=== PATIENT | male | born 1960 | race Hispanic/Latino ===

== ENCOUNTER 2016-09-10 11:46 | Emergency (ER) | payer OTHER ==
[2016-09-10 12:01] VITALS: O2SAT 91
[2016-09-10] MEDS ORDERED: Oxycodone/Acetaminophen 5/325 mg Tab PO STA ×2 (12:10→15:18)
[2016-09-10] MEDS ORDERED: Oxycodone/Acetaminophen 5/325 mg Tab ONE ×2 (12:25→15:12)
[2016-09-10 12:36] LABS: SQUAMOUS EPITHIAL < 1 /hpf (0-5); URINE BILIRUBIN NEGATIVE (NEGATIVE); URINE BLOOD 2+ (NEGATIVE); URINE CLARITY Hazy (Clear); URINE COLOR Amber (YELLOW); URINE GLUCOSE (UA) NORMAL (Normal); URINE LEUKOCYTE ESTERASE NEG Leu/uL (Negative); URINE NITRATE NEGATIVE (NEGATIVE); URINE PROTEIN 1+ mg/dL (NEGATIVE)
--- NOTE | 2016-09-10 12:42 | RAD ---
PROCEDURE: Radiographs of the Lumbar Spine. HISTORY: sciatica COMPARISON: None available. FINDINGS: BONES: Alignment appears satisfactory. No listhesis. No acute displaced fracture identified. Prominent anterior osteophyte formation. DISC SPACES: Intervertebral disc space narrowing and evidence of vacuum disc phenomenon at L5-S1. OTHER FINDINGS: Dense atherosclerotic calcifications of the aorta. Evidence of mesh involving the lower left pelvic wall. IMPRESSION: Degenerative changes as above. No acute displaced fracture or subluxation identified.
--- NOTE | 2016-09-10 13:39 | C.PDOC ---
History Of Present Illness 56 y/o male c/o lower back pain radiating to the right groin area since yesterday. Pt states pain may be due to lifting something heavy at his job yesterday. Pt notes he took 3 aspirin this morning w/o relief. Otherwise, denies trauma, fever, chills, abdominal pain, nausea, vomiting, new weakness or numbness, dysuria, urinary/bowel incontinence, or other associated symptoms. Time Seen by Provider: 09/10/16 12:01 Chief Complaint (Nursing): Back Pain History Per: Patient History/Exam Limitations: no limitations Onset/Duration Of Symptoms: Days Current Symptoms Are (Timing): Still Present Quality Of Discomfort: "Pain" Previous Symptoms: None Associated Symptoms: denies: New Weakness, New Numbness Recent travel outside of the [place]: No Past Medical History Reviewed: Historical Data, Nursing Documentation, Vital Signs Vital Signs: Last Vital Signs Temp 98.7 F 09/10/16 13:47 Pulse 57 L 09/10/16 13:47 Resp 18 09/10/16 13:47 BP 183/95 H 09/10/16 13:47 Pulse Ox 91 L 09/10/16 15:06 - Medical History PMH: HTN Family History: States: Unknown Family Hx - Social History Hx Tobacco Use: No Hx Alcohol Use: No Hx Substance Use: Yes - Immunization History Hx Tetanus Toxoid Vaccination: No Hx Influenza Vaccination: No Hx Pneumococcal Vaccination: No Review Of Systems Except As Marked, All Systems Reviewed And Found Negative. Constitutional: Negative for: Fever, Chills Cardiovascular: Negative for: Chest Pain Respiratory: Negative for: Cough, Shortness of Breath, Wheezing Gastrointestinal: Negative for: Nausea, Vomiting, Abdominal Pain Genitourinary: Negative for: Dysuria, Frequency, Incontinence, Hematuria Musculoskeletal: Positive for: Back Pain. Negative for: Neck Pain Skin: Negative for: Rash Neurological: Negative for: Weakness, Numbness, Headache, Dizziness Physical Exam - Physical Exam Appears: Non-toxic, No Acute Distress Skin: Normal Color, Warm, Dry Head: Atraumatic, Normacephalic Oral Mucosa: Moist Neck: Normal ROM, No Midline Cervical Tenderness, No Paracervical Tenderness, Supple Chest: Symmetrical Cardiovascular: Rhythm Regular Respiratory: Normal Breath Sounds, No Rales, No Rhonchi, No Wheezing Gastrointestinal/Abdominal: Soft, No Tenderness, No Guarding, No Rebound Back: No Vertebral Tenderness, Paraspinal Tenderness (mild paralumbar tenderness ) Extremity: Normal ROM, Capillary Refill (< 2 sec.) Neurological/Psych: Oriented x3, Normal Speech, Normal Cognition, Normal Motor, Normal Sensation ED Course And Treatment O2 Sat by Pulse Oximetry: 91 - Other Rad LS SPINE XRAY X-Ray: Viewed By Me, Read By Radiologist Interpretation: Accession No. : [id number]. Patient Name / ID : NICOLE TORRES / [id number]. Exam Date : 09/10/2016 12:10:33 ( Approved ). Study Comment : Sex / Age : M / 56Y. Creator : Edyta Perez MD. Dictator : Basic Combatant Swimmer : Model And Pattern Supervisor : Edyta Perez MD. Approver2 : Report Date : 09/10/2016 12:41:15. My Comment : . PROCEDURE: Radiographs of the Lumbar Spine. HISTORY: sciatica. COMPARISON: None available. FINDINGS: BONES: Alignment appears satisfactory. No listhesis. No acute displaced fracture identified. Prominent anterior osteophyte formation. DISC SPACES: Intervertebral disc space narrowing and evidence of vacuum disc phenomenon at L5-S1. OTHER FINDINGS: Dense atherosclerotic calcifications of the aorta. Evidence of mesh involving the lower left pelvic wall. IMPRESSION: Degenerative changes as above. No acute displaced fracture or subluxation identified. - CT Scan/US CT ABDOMEN PELVIS Other Rad Studies (CT/US): Read By Radiologist, Radiology Report Reviewed CT/US Interpretation: Accession No. : [id number]. Patient Name / ID : NICOLE TORRES / [id number]. Exam Date : 09/10/2016 13:30:51 ( Approved ). Study Comment : Sex / Age : M / 56Y. Creator : ricky reno. Dictator : Basic Combatant Swimmer : Model [employer] Pattern Supervisor : Edyta Perez MD. Approver2 : Report Date : 09/10/2016 13:44:50. My Comment : . PROCEDURE: CT Abdomen and Pelvis without Oral or IV contrast. HISTORY: back pain, right groin pain, hematuria. COMPARISON: None available. TECHNIQUE: Contiguous axial images of the abdomen and pelvis. No oral or IV contrast administered. Coronal and Sagittal reformats generated and reviewed. Radiation dose: Total exam DLP = 642.72 MGy- cm. This CT exam was performed using one or more of the following dose reduction techniques: Automated exposure control, adjustment of the mA and/or kV according to patient size, and/or use of iterative reconstruction technique. FINDINGS: There is limited evaluation of the solid organs without the administration of IV contrast. LOWER THORAX: No visible consolidation, pleural effusion, or pneumothorax. Small hiatal hernia. LIVER: 5 mm right hepatic lobe hypodensity, too small to characterize. GALLBLADDER AND BILE DUCTS : Unremarkable unenhanced appearance. PANCREAS: Unremarkable unenhanced appearance. SPLEEN: 15 mm probable splenule. Splenomegaly. ADRENALS: Unremarkable. KIDNEYS AND URETERS: No hydronephrosis or obstructing renal calculus. BLADDER: The urinary bladder appears unremarkable. REPRODUCTIVE: The prostate gland measures approximately 3.5 x 4.1 cm. APPENDIX: Unremarkable. BOWEL: The stomach is nondistended. Lack of oral contrast limits evaluation for bowel pathology. The bowel loops appear within normal limits of caliber without evidence of intestinal obstruction. PERITONEUM: No significant free fluid. No definite free air. LYMPH NODES: No bulky lymphadenopathy identified. VASCULATURE: Atherosclerotic calcifications. No aortic aneurysm. BONES: Osseous demineralization. Degenerative changes. OTHER FINDINGS: Left anterior pelvic mesh. Small fat containing right inguinal hernia. IMPRESSION: Too small to characterize 5 mm right hepatic lobe hypodensity; statistically likely cyst or hemangioma. Splenomegaly. Small fat containing right inguinal hernia. Additional findings as above. Progress Note: Percocet, Toradol, Valium, CT abd/pelvis ordered, reviewed. On reassessment, patient is resting comfortably, and is in no acute distress. Patient reports improvement of pain and is ambulatory in ED. Patient instructed to follow up with clinic/PMD within 1-2 days. Disposition - Disposition Referrals: [facility] [Outside] [facility] [Outside] [facility] [Outside] Patricia Dunne MD [Staff Provider] - Disposition: HOME/ ROUTINE Disposition Time: 15:04 Condition: STABLE Additional Instructions: Follow up with PMD/ clinic/Urologist within 1-2 days. Return to Ed if feel worse. Prescriptions: Ibuprofen [Motrin Tab] 600 mg PO Q8 #30 tab oxyCODONE/Acetaminophen [Percocet 5/325 mg Tab] 1 tab PO QID PRN #20 tab PRN Reason: Pain diaZEpam [Valium] 2 mg PO TID #15 tab Instructions: Acute Low Back Pain (ED) Forms: [facility] (Indonesian), Work Excuse - Clinical Impression Clinical Impression: Low back strain - PA / STOCKBROKER / Resident Statement MD/DO has reviewed & agrees with the documentation as recorded. - Scribe Statement The provider has reviewed the documentation as recorded by the Scribe SGKanika All medical record entries made by the Scribe were at my direction and personally dictated by me. I have reviewed the chart and agree that the record accurately reflects my personal performance of the history, physical exam, medical decision making, and the department course for this patient. I have also personally directed, reviewed, and agree with the discharge instructions and disposition.
[2016-09-10 13:48] VITALS: BP 183/95; PULSE 57; RESP 18; TEMP 98.7
--- NOTE | 2016-09-10 14:30 | CT ---
PROCEDURE: CT Abdomen and Pelvis without Oral or IV contrast. HISTORY: back pain, right groin pain, hematuria COMPARISON: None available TECHNIQUE: Contiguous axial images of the abdomen and pelvis. No oral or IV contrast administered. Coronal and Sagittal reformats generated and reviewed. Radiation dose: Total exam DLP = 642.72 MGy-cm. This CT exam was performed using one or more of the following dose reduction techniques: Automated exposure control, adjustment of the mA and/or kV according to patient size, and/or use of iterative reconstruction technique. FINDINGS: There is limited evaluation of the solid organs without the administration of IV contrast. LOWER THORAX: No visible consolidation, pleural effusion, or pneumothorax. Small hiatal hernia. LIVER: 5 mm right hepatic lobe hypodensity, too small to characterize. GALLBLADDER AND BILE DUCTS: Unremarkable unenhanced appearance. PANCREAS: Unremarkable unenhanced appearance. SPLEEN: 15 mm probable splenule. Splenomegaly. ADRENALS: Unremarkable. KIDNEYS AND URETERS: No hydronephrosis or obstructing renal calculus. BLADDER: The urinary bladder appears unremarkable. REPRODUCTIVE: The prostate gland measures approximately 3.5 x 4.1 cm. APPENDIX: Unremarkable. BOWEL: The stomach is nondistended. Lack of oral contrast limits evaluation for bowel pathology. The bowel loops appear within normal limits of caliber without evidence of intestinal obstruction. PERITONEUM: No significant free fluid. No definite free air. LYMPH NODES: No bulky lymphadenopathy identified. VASCULATURE: Atherosclerotic calcifications. No aortic aneurysm. BONES: Osseous demineralization. Degenerative changes. OTHER FINDINGS: Left anterior pelvic mesh. Small fat containing right inguinal hernia. IMPRESSION: Too small to characterize 5 mm right hepatic lobe hypodensity; statistically likely cyst or hemangioma. Splenomegaly. Small fat containing right inguinal hernia. Additional findings as above.
== END 2016-09-10 15:16 | disposition home or self-care (01) ==
LOC: C.ER 11:46
DX: S39.012A Strain of muscle, fascia and tendon of lower back, initial encounter (principal); X50.9XXA Other and unspecified overexertion or strenuous movements or postures, initial encounter; Y92.89 Other specified places as the place of occurrence of the external cause; Y99.0 Civilian activity done for income or pay
CPT/HCPCS: 72100; 74176; 81001; 96372; 99284; J1885

== ENCOUNTER 2016-09-21 08:16 | Emergency (ER) | payer OTHER ==
[2016-09-21 08:23] VITALS: RESP 18; TEMP 98.3
--- NOTE | 2016-09-21 09:13 | C.PDOC ---
History Of Present Illness 56 y/o male presents to ED with complaints of worsening back pain. Patient was seen at ED on 09/10/16 for similar symptoms and discharged with advised follow up with clinic. Patient states he has an appointment with clinic on 09/24/16 but pain has worsen which prompted visit to ED today. Patient also reports he ran out of pain medication and needs to go back to work but can't secondary to pain. Patient states he is non compliant with blood pressure medication too. Patient denies chest pain, bladder incontinence, sob headache or any other complaints at this time. Time Seen by Provider: 09/21/16 08:32 Chief Complaint (Nursing): Back Pain History Per: Patient History/Exam Limitations: no limitations Onset/Duration Of Symptoms: Days Current Symptoms Are (Timing): Still Present Past Medical History Reviewed: Historical Data, Nursing Documentation, Vital Signs Vital Signs: Last Vital Signs Temp 98.3 F 09/21/16 10:00 Pulse 63 09/21/16 10:00 Resp 18 09/21/16 10:00 BP 191/116 H 09/21/16 10:00 Pulse Ox 94 L 09/21/16 10:00 - Medical History PMH: HTN Surgical History: Back Surgery Family History: States: Unknown Family Hx - Social History Hx Tobacco Use: No Hx Alcohol Use: No Hx Substance Use: Yes - Immunization History Hx Tetanus Toxoid Vaccination: No Hx Influenza Vaccination: No Hx Pneumococcal Vaccination: No Review Of Systems Except As Marked, All Systems Reviewed And Found Negative. Constitutional: Negative for: Fever, Chills Cardiovascular: Negative for: Chest Pain Respiratory: Negative for: Shortness of Breath Gastrointestinal: Negative for: Nausea, Vomiting, Diarrhea Genitourinary: Negative for: Dysuria, Frequency Musculoskeletal: Positive for: Back Pain Skin: Negative for: Rash Physical Exam - Physical Exam Appears: Non-toxic, No Acute Distress Skin: Normal Color, Warm, Dry, No Pale Head: Atraumatic, Normacephalic Oral Mucosa: Moist Neck: Normal ROM, Supple Cardiovascular: Rhythm Regular, No Murmur Respiratory: Normal Breath Sounds, No Rales, No Rhonchi, No Wheezing Gastrointestinal/Abdominal: Soft, No Tenderness, No Guarding, No Rebound Back: Paraspinal Tenderness Extremity: Normal ROM Neurological/Psych: Oriented x3, Normal Speech, Normal Motor, Normal Sensation ED Course And Treatment O2 Sat by Pulse Oximetry: 93 (RA) Pulse Ox Interpretation: Abnormal Medical Decision Making Medical Decision Making: Patient is ambulatory in ER and discharged home with prescriptions and advised follow up with clinic on 09/24/16 Plan: * Toradol IM * Norvasc Disposition - Disposition Referrals: [facility] [Outside] [facility] [Outside] Disposition: HOME/ ROUTINE Disposition Time: 09:10 Condition: STABLE Additional Instructions: Follow up in Clinic within 1-2 days. Return to ED if feel worse. Prescriptions: Ibuprofen [Motrin Tab] 600 mg PO Q8 #30 tab amLODIPine [Norvasc] 5 mg PO DAILY #30 tab traMADol [Ultram] 50 mg PO Q6 #30 tab Instructions: Back Pain (ED) Forms: [facility] (Slovenian), Work Excuse - Clinical Impression Clinical Impression: Low back pain - Scribe Statement The provider has reviewed the documentation as recorded by the Scribkasey Morgan All medical record entries made by the Johannibe were at my direction and personally dictated by me. I have reviewed the chart and agree that the record accurately reflects my personal performance of the history, physical exam, medical decision making, and the department course for this patient. I have also personally directed, reviewed, and agree with the discharge instructions and disposition.
[2016-09-21 10:03] VITALS: BP 191/116; PULSE 63
[2016-09-21 11:11] VITALS: O2SAT 93
== END 2016-09-21 10:09 | disposition home or self-care (01) ==
LOC: C.ER 08:16
DX: M54.5 Low back pain (principal)
CPT/HCPCS: 96372; 99284; J1885

== ENCOUNTER 2017-06-07 16:08 | Emergency (ER) | payer OTHER ==
[2017-06-07] MEDS ORDERED: Albuterol-Ipratrop 3 mg / 0.5 (3 ml) UD INH STA ×2 (17:41→18:45)
[2017-06-07] MEDS ORDERED: Albuterol-Ipratrop 3 mg / 0.5 (3 ml) UD ONE ×2 (17:42→18:54)
--- NOTE | 2017-06-07 17:55 | C.PDOC ---
History Of Present Illness 57yo male, with history of asthma and hypertension comes to ED with complaints of fever, cough with productive yellow phlegm, shortness of breathing and wheezing for the past 2 days. Patient states he is a smoker and denies any prior intubations. He also states he ran out of his blood pressure medications and his inhaler. Patient denies any chest pain, abdominal pain, vomiting, and offers no additional medical complaints. Time Seen by Provider: 06/07/17 17:36 Chief Complaint (Nursing): Shortness Of Breath History Per: Patient History/Exam Limitations: no limitations Onset/Duration Of Symptoms: Days (2) Current Symptoms Are (Timing): Still Present Associated Symptoms: Fever, Productive Cough. denies: Chest Pain Past Medical History Reviewed: Historical Data, Nursing Documentation, Vital Signs Vital Signs: Last Vital Signs Temp 97.8 F 06/07/17 16:29 Pulse 71 06/07/17 17:26 Resp 21 06/07/17 17:26 BP 202/127 H 06/07/17 17:26 Pulse Ox 94 L 06/07/17 18:06 - Medical History PMH: Asthma, HTN Surgical History: Back Surgery Family History: States: Unknown Family Hx - Social History Hx Tobacco Use: Yes (smoker) Hx Alcohol Use: No Hx Substance Use: Yes - Immunization History Hx Tetanus Toxoid Vaccination: No Hx Influenza Vaccination: No Hx Pneumococcal Vaccination: No Review Of Systems Except As Marked, All Systems Reviewed And Found Negative. Constitutional: Positive for: Fever Cardiovascular: Negative for: Chest Pain Respiratory: Positive for: Cough, Shortness of Breath, Sputum (yellow), Wheezing Gastrointestinal: Negative for: Vomiting, Abdominal Pain Physical Exam - Physical Exam Appears: Non-toxic, No Acute Distress Skin: Normal Color, Warm, Dry Head: Atraumatic, Normacephalic Eye(s): bilateral: Normal Inspection, PERRL Oral Mucosa: Moist Neck: Normal ROM, Supple Chest: Symmetrical Cardiovascular: Rhythm Regular Respiratory: Wheezing (expitory wheeze bilaterally) Gastrointestinal/Abdominal: Soft, No Tenderness Back: Normal Inspection Extremity: Normal ROM, No Pedal Edema, No Deformity Neurological/Psych: Oriented x3 ED Course And Treatment - Laboratory Results Result Diagrams: 06/07/17 18:39 ECG: Interpreted By Me, Viewed By Me ECG Rhythm: Sinus Rhythm ECG Interpretation: Normal Interpretation Of ECG: Normal intervals, normal axis, no ST/T changes Rate From EC O2 Sat by Pulse Oximetry: 92 Medical Decision Making Medical Decision Making: Impression: 1. Asthma, 2. Hypertension Plan: -- Labs -- CXR -- EKG -- Duoneb 3ml INH -- Catapres 0.1mg PO -- Solumedrol 125mg IVP Disposition - Disposition Disposition Time: 19:00 Condition: FAIR Forms: [facility] (Slovenian) - Clinical Impression Clinical Impression: Dyspnea - Scribe Statement The provider has reviewed the documentation as recorded by the Scribe (Ericka Pool) Provider Attestation: All medical record entries made by the Scribe were at my direction and personally dictated by me. I have reviewed the chart and agree that the record accurately reflects my personal performance of the history, physical exam, medical decision making, and the department course for this patient. I have also personally directed, reviewed, and agree with the discharge instructions and disposition. Physician Patient Turnover Patient Signed Over To: Ayanna Reyes Handoff Comments: pending labs, cxr, reevaluation and disposition
[2017-06-07 18:44] LABS: BASO # 0.1 K/uL (0.0-0.2); BASO % 0.5 % (0.0-2.0); EOS # 0.3 K/uL (0.0-0.7); EOS % 2.5 % (0.0-4.0); HEMOGLOBIN 12.9 g/dL (12.0-18.0); LYMPH # 1.5 K/uL (1.0-4.3); LYMPH % 11.9 % (20.0-40.0); MEAN CELL VOLUME 97.1 fL (80.0-94.0); MEAN CORPUSCULAR HEMOGLOBIN 32.6 pg (27.0-31.0); MEAN CORPUSCULAR HGB CONC 33.5 g/dL (33.0-37.0); MEAN PLATELET VOLUME 10.5 fL (7.2-11.7); MONO # 1.1 K/uL (0.0-0.8); MONO % 8.2 % (0.0-10.0); NEUT # 9.9 K/uL (1.8-7.0); NEUT % 76.9 % (50.0-75.0); RBC 3.97 Mil/uL (4.40-5.90); RED CELL DISTRIBUTION WIDTH 13.5 % (11.5-14.5); WHITE BLOOD COUNT 12.9 K/uL (4.8-10.8)
--- NOTE | 2017-06-07 18:59 | RAD ---
HISTORY: SOB COMPARISON: No prior. TECHNIQUE: Chest PA and lateral FINDINGS: LUNGS: No active pulmonary disease. PLEURA: No significant pleural effusion identified. No pneumothorax apparent. CARDIOVASCULAR: Normal. OSSEOUS STRUCTURES: Mild multilevel degenerative spondylosis of the thoracic spine. Chronic anterior wedge deformities of a few mid thoracic segments are present. VISUALIZED UPPER ABDOMEN: Normal. OTHER FINDINGS: None. IMPRESSION: No active disease.
[2017-06-07 19:04] LABS: ALB/GLOB RATIO 1.5 (1.0-2.1); ALBUMIN 4.4 g/dL (3.5-5.0); ALT/SGPT 10 U/L (21-72); AST/SGOT 21 U/L (17-59); BLOOD UREA NITROGEN 19 mg/dL (9-20); CALCIUM 8.9 mg/dl (8.6-10.4); GFR AFRICAN-AMERICAN > 60; GFR NON-AFRICAN AMERICAN > 60
[2017-06-07 19:15] LABS: B-TYPE NATRIURETIC PEPTIDE 151 pg/mL (0-900)
[2017-06-07 20:28] VITALS: BP 160/90; PULSE 78; RESP 18; TEMP 98; O2SAT 97
--- NOTE | 2017-06-08 15:21 | CARD ---
APPROVED REPORT EKG Measurement Heart [id number] <Conclusion> Normal sinus rhythm Normal ECG
== END 2017-06-07 20:35 | disposition home or self-care (01) ==
LOC: C.ER 16:08
DX: J45.901 Unspecified asthma with (acute) exacerbation (principal); I10 Essential (primary) hypertension; R06.00 Dyspnea, unspecified; F17.210 Nicotine dependence, cigarettes, uncomplicated
CPT/HCPCS: 71046; 80053; 83880; 84484; 85025; 93005; 94640; 96374; 99285; J2930

== ENCOUNTER 2017-06-14 21:18 | Inpatient (IN) | payer OTHER ==
[2017-06-14] MEDS ORDERED: Albuterol-Ipratrop 3 mg / 0.5 (3 ml) UD ONE (22:29)
[2017-06-14] MEDS ORDERED: Albuterol 0.083% Inhal Sol (2.5 mg/3 mL) UD INH STA (23:21)
[2017-06-14 23:40] LABS: EOS % 0.1 % (0.0-4.0); HEMOGLOBIN 12.4 g/dL (12.0-18.0); LYMPH # 0.8 K/uL (1.0-4.3)
[2017-06-14] MEDS ORDERED: Albuterol 0.083% Inhal Sol (2.5 mg/3 mL) UD ONE (23:40)
[2017-06-14 23:43] LABS: SQUAMOUS EPITHIAL < 1 /hpf (0-5); URINE BILIRUBIN NEGATIVE (NEGATIVE); URINE BLOOD 3+ (NEGATIVE); URINE CLARITY Clear (Clear); URINE COLOR Yellow (YELLOW); URINE GLUCOSE (UA) NORMAL (Normal); URINE LEUKOCYTE ESTERASE NEG Leu/uL (Negative); URINE PROTEIN 1+ mg/dL (NEGATIVE)
[2017-06-14 23:44] LABS: ABG ALLEN TEST POS; ARTERIAL BLOOD GAS HEMOGLOBIN 12.6 g/dL (11.7-17.4); ARTERIAL BLOOD GAS O2 SAT 91.3 % (95-98); ARTERIAL BLOOD GAS PCO2 35 mm/Hg (35-45); ARTERIAL BLOOD GAS PO2 62 mm/Hg (80-100); ARTERIAL BLOOD GAS TCO2 28.4 mmol/L (22-28)
[2017-06-14 23:50] LABS: BASO # 0.1 K/uL (0.0-0.2); BASO % 0.4 % (0.0-2.0); LYMPH % 3.7 % (20.0-40.0); MEAN CELL VOLUME 95.7 fL (80.0-94.0); MEAN CORPUSCULAR HEMOGLOBIN 32.1 pg (27.0-31.0); MEAN CORPUSCULAR HGB CONC 33.5 g/dL (33.0-37.0); MONO # 1.6 K/uL (0.0-0.8); MONO % 7.7 % (0.0-10.0); NEUT # 18.7 K/uL (1.8-7.0); NEUT % 88.1 % (50.0-75.0); PLATELET COUNT 239 K/uL (130-400); RBC 3.85 Mil/uL (4.40-5.90); RED CELL DISTRIBUTION WIDTH 13.2 % (11.5-14.5); WHITE BLOOD COUNT 21.3 K/uL (4.8-10.8)
[2017-06-14 23:54] LABS: ALB/GLOB RATIO 1.1 (1.0-2.1); ALBUMIN 3.6 g/dL (3.5-5.0); ALT/SGPT 28 U/L (21-72); AST/SGOT 24 U/L (17-59); BLOOD UREA NITROGEN 13 mg/dL (9-20); CALCIUM 8.4 mg/dl (8.6-10.4); GFR AFRICAN-AMERICAN > 60; GFR NON-AFRICAN AMERICAN > 60
[2017-06-15 00:01] LABS: B-TYPE NATRIURETIC PEPTIDE 497 pg/mL (0-900)
--- NOTE | 2017-06-15 01:07 | CP.PCM.HP ---
<Lisa Bobby - Last Filed: 06/15/17 01:08> History of Present Illness - History of Present Illness History of Present Illness: H&P: 57 year old male presented to hospital for shortness of breath. PMHx: HTN, asthma Social: tobacco abuse Past Patient History - Past Social History Smoking Status: Heavy Smoker > 10 Cigarettes Daily - CARDIAC Hx Hypertension: Yes - PULMONARY Hx Asthma: Yes Hx Bronchitis: Yes - MUSCULOSKELETAL/RHEUMATOLOGICAL Hx Musculoskeletal Disorders: Yes Hx Back Pain: Yes - PSYCHIATRIC Hx Substance Use: Yes - SURGICAL HISTORY Hx Surgeries: Yes Hx Herniorrhaphy: Yes Meds Allergies/Adverse Reactions: Allergies Allergy/AdvReac Type Severity Reaction Status Date / Time No Known Allergies Allergy Verified 06/07/17 16:31 Results - Vital Signs Recent Vital Signs: Last Vital Signs Temp 101.3 F H 06/15/17 00:31 Pulse 94 H 06/15/17 00:31 Resp 20 06/15/17 00:31 BP 131/61 06/15/17 00:31 Pulse Ox 92 L 06/15/17 00:31 - Labs Result Diagrams: 06/14/17 11:38 06/14/17 11:38 Labs: Laboratory Results - last 24 hr 06/14/17 06/14/17 06/14/17 11:38 11:38 11:38 WBC 21.3 H D RBC 3.85 L Hgb 12.4 Hct 36.9 MCV 95.7 H MCH 32.1 H MCHC 33.5 RDW 13.2 Plt Count 239 MPV 9.0 Neut % (Auto) 88.1 H Lymph % (Auto) 3.7 L [place] % (Auto) 7.7 Eos % (Auto) 0.1 Baso % (Auto) 0.4 Neut # (Auto) 18.7 H Lymph # (Auto) 0.8 L [place] # (Auto) 1.6 H Eos # (Auto) 0.0 Baso # (Auto) 0.1 Puncture Site pCO2 pO2 HCO3 ABG pH ABG Total CO2 ABG O2 Saturation ABG Base Excess ABG Hemoglobin ABG Carboxyhemoglobin POC ABG HHb (Measured) ABG Methemoglobin Thang Test Hgb O2 Saturation Liter Flow Sodium Potassium Chloride Carbon Dioxide Anion Gap BUN Creatinine Est GFR ( Amer) Est GFR (Non-Af Amer) Random Glucose Calcium Total Bilirubin AST ALT Alkaline Phosphatase NT-Pro-B Natriuret Pep Total Protein Albumin Globulin Albumin/Globulin Ratio Urine Color Yellow Urine Clarity Clear Urine pH 5.0 Ur Specific [place] 1.018 Urine Protein 1+ H Urine Glucose (UA) Normal Urine Ketones Negative Urine Blood 3+ H Urine Nitrate Negative Urine Bilirubin Negative Urine Urobilinogen 4.0 Ur Leukocyte Esterase Neg Urine WBC (Auto) 1 Urine RBC (Auto) 15 H Ur Squamous Epith Cells < 1 Influenza Typ A,B (EIA) Negative for flu a/b 06/14/17 06/14/17 11:38 23:40 WBC RBC Hgb Hct MCV MCH MCHC RDW Plt Count MPV Neut % (Auto) Lymph % (Auto) [place] % (Auto) Eos % (Auto) Baso % (Auto) Neut # (Auto) Lymph # (Auto) [place] # (Auto) Eos # (Auto) Baso # (Auto) Puncture Site Rr pCO2 35 pO2 62 L HCO3 28.0 ABG pH 7.50 H ABG Total CO2 28.4 H ABG O2 Saturation 91.3 L ABG Base Excess 4.2 H ABG Hemoglobin 12.6 ABG Carboxyhemoglobin 3.0 H POC ABG HHb (Measured) 8.3 H ABG Methemoglobin 1.5 Thang Test Pos Hgb O2 Saturation 87.2 L Liter Flow 7.0 Sodium 135 Potassium 3.2 L Chloride 97 L Carbon Dioxide 28 Anion Gap 13 BUN 13 Creatinine 0.9 Est GFR ( Amer) > 60 Est GFR (Non-Af Amer) > 60 Random Glucose 132 H Calcium 8.4 L Total Bilirubin 1.3 AST 24 ALT 28 Alkaline Phosphatase 90 NT-Pro-B Natriuret Pep 497 Total Protein 6.9 Albumin 3.6 Globulin 3.3 Albumin/Globulin Ratio 1.1 Urine Color Urine Clarity Urine pH Ur Specific [place] Urine Protein Urine Glucose (UA) Urine Ketones Urine Blood Urine Nitrate Urine Bilirubin Urine Urobilinogen Ur Leukocyte Esterase Urine WBC (Auto) Urine RBC (Auto) Ur Squamous Epith Cells Influenza Typ A,B (EIA) Assessment & Plan - Assessment and Plan (Free Text) Assessment: 57 year old male with past medical history of HTN and asthma is admitted for bilateral pneumonia. CXR on admission showed bilateral pleural effusions ( official read pending). Patient was noted to have leukocytosis on admission with a left shift. He was also febrile on admission. Pnuemonia - Date & Time Date: 06/15/17 Time: 01:08 <Raven Evans Gudelia - Last Filed: 06/15/17 01:20> Results - Vital Signs Recent Vital Signs: Last Vital Signs Temp 101.3 F H 06/15/17 00:31 Pulse 94 H 06/15/17 00:31 Resp 20 06/15/17 00:31 BP 131/61 06/15/17 00:31 Pulse Ox 92 L 06/15/17 00:31 - Labs Result Diagrams: 06/14/17 11:38 06/14/17 11:38 Labs: Laboratory Results - last 24 hr 06/14/17 06/14/17 06/14/17 11:38 11:38 11:38 WBC 21.3 H D RBC 3.85 L Hgb 12.4 Hct 36.9 MCV 95.7 H MCH 32.1 H MCHC 33.5 RDW 13.2 Plt Count 239 MPV 9.0 Neut % (Auto) 88.1 H Lymph % (Auto) 3.7 L [place] % (Auto) 7.7 Eos % (Auto) 0.1 Baso % (Auto) 0.4 Neut # (Auto) 18.7 H Lymph # (Auto) 0.8 L [place] # (Auto) 1.6 H Eos # (Auto) 0.0 Baso # (Auto) 0.1 Puncture Site pCO2 pO2 HCO3 ABG pH ABG Total CO2 ABG O2 Saturation ABG Base Excess ABG Hemoglobin ABG Carboxyhemoglobin POC ABG HHb (Measured) ABG Methemoglobin Thang Test Hgb O2 Saturation Liter Flow Sodium Potassium Chloride Carbon Dioxide Anion Gap BUN Creatinine Est GFR ( Amer) Est GFR (Non-Af Amer) Random Glucose Calcium Total Bilirubin AST ALT Alkaline Phosphatase NT-Pro-B Natriuret Pep Total Protein Albumin Globulin Albumin/Globulin Ratio Urine Color Yellow Urine Clarity Clear Urine pH 5.0 Ur Specific [place] 1.018 Urine Protein 1+ H Urine Glucose (UA) Normal Urine Ketones Negative Urine Blood 3+ H Urine Nitrate Negative Urine Bilirubin Negative Urine Urobilinogen 4.0 Ur Leukocyte Esterase Neg Urine WBC (Auto) 1 Urine RBC (Auto) 15 H Ur Squamous Epith Cells < 1 Influenza Typ A,B (EIA) Negative for flu a/b 06/14/17 06/14/17 11:38 23:40 WBC RBC Hgb Hct MCV MCH MCHC RDW Plt Count MPV Neut % (Auto) Lymph % (Auto) [place] % (Auto) Eos % (Auto) Baso % (Auto) Neut # (Auto) Lymph # (Auto) [place] # (Auto) Eos # (Auto) Baso # (Auto) Puncture Site Rr pCO2 35 pO2 62 L HCO3 28.0 ABG pH 7.50 H ABG Total CO2 28.4 H ABG O2 Saturation 91.3 L ABG Base Excess 4.2 H ABG Hemoglobin 12.6 ABG Carboxyhemoglobin 3.0 H POC ABG HHb (Measured) 8.3 H ABG Methemoglobin 1.5 Thang Test Pos Hgb O2 Saturation 87.2 L Liter Flow 7.0 Sodium 135 Potassium 3.2 L Chloride 97 L Carbon Dioxide 28 Anion Gap 13 BUN 13 Creatinine 0.9 Est GFR ( Amer) > 60 Est GFR (Non-Af Amer) > 60 Random Glucose 132 H Calcium 8.4 L Total Bilirubin 1.3 AST 24 ALT 28 Alkaline Phosphatase 90 NT-Pro-B Natriuret Pep 497 Total Protein 6.9 Albumin 3.6 Globulin 3.3 Albumin/Globulin Ratio 1.1 Urine Color Urine Clarity Urine pH Ur Specific [place] Urine Protein Urine Glucose (UA) Urine Ketones Urine Blood Urine Nitrate Urine Bilirubin Urine Urobilinogen Ur Leukocyte Esterase Urine WBC (Auto) Urine RBC (Auto) Ur Squamous Epith Cells Influenza Typ A,B (EIA) Medical Decision Making Medical Decision Making: Chest X-Ray results showed right and left upper lob infiltration. <Kristen Mena - Last Filed: 06/15/17 01:39> History of Present Illness - History of Present Illness History of Present Illness: 57 y/o smoker who quit one week ago presents to the ED for SOB. Patient states he was diagnosed with asthma last week and was sent home with steroids and broncho dilators. He says his SOB has not improved which he feels on minimal exertion. He is also complaining of cough with green like sputum, pleurtic CP, and fever. Denies any abdominal complaints. PMD: None provided Review of Systems - Constitutional Constitutional: Fever - Cardiovascular Cardiovascular: Chest Pain (pleuritic) - Respiratory Respiratory: Cough, Chest Congestion (green like sputum), Other (SOB) - Gastrointestinal Gastrointestinal: As Per HPI (denies any abdominal complaints) Past Patient History - Infectious Disease Hx of Infectious Diseases: None - Tetanus Immunizations Tetanus Immunization: Unknown - Past Social History Smoking Status: Former Smoker (quit one week ago) Physical Exam - Constitutional Appears: In Acute Distress - Head Exam Head Exam: ATRAUMATIC, NORMAL INSPECTION, NORMOCEPHALIC - Eye Exam Eye Exam: EOMI, Normal appearance, PERRL Pupil Exam: NORMAL ACCOMODATION, PERRL - ENT Exam ENT Exam: Mucous Membranes Moist, Normal Exam (with no drooling) - Neck Exam Neck exam: Positive for: Normal Inspection - Respiratory Exam Respiratory Exam: Decreased Breath Sounds (diminished air movement). absent: Wheezes (diffused bilaterally), Stridor, NORMAL BREATHING PATTERN (using excessive muscular for breathing, airway is patent) - Cardiovascular Exam Cardiovascular Exam: Tachycardia (within normal limits) - GI/Abdominal Exam GI & Abdominal Exam: Normal Bowel Sounds, Soft. absent: Tenderness - Extremities Exam Extremities exam: Positive for: normal inspection - Back Exam Back exam: NORMAL INSPECTION. absent: CVA tenderness (L), CVA tenderness (R) - Neurological Exam Neurological exam: Alert, CN II-XII Intact, Normal Gait, Oriented x3, Reflexes Normal - Psychiatric Exam Psychiatric exam: Normal Affect, Normal Mood - Skin Skin Exam: Dry, Intact, Normal Color, Warm Results - Vital Signs Recent Vital Signs: Last Vital Signs Temp 101.3 F H 06/15/17 00:31 Pulse 94 H 06/15/17 00:31 Resp 20 06/15/17 00:31 BP 131/61 06/15/17 00:31 Pulse Ox 92 L 06/15/17 00:31 - Labs Result Diagrams: 06/14/17 11:38 06/14/17 11:38 Labs: Laboratory Results - last 24 hr 06/14/17 06/14/17 06/14/17 11:38 11:38 11:38 WBC 21.3 H D RBC 3.85 L Hgb 12.4 Hct 36.9 MCV 95.7 H MCH 32.1 H MCHC 33.5 RDW 13.2 Plt Count 239 MPV 9.0 Neut % (Auto) 88.1 H Lymph % (Auto) 3.7 L [place] % (Auto) 7.7 Eos % (Auto) 0.1 Baso % (Auto) 0.4 Neut # (Auto) 18.7 H Lymph # (Auto) 0.8 L [place] # (Auto) 1.6 H Eos # (Auto) 0.0 Baso # (Auto) 0.1 Puncture Site pCO2 pO2 HCO3 ABG pH ABG Total CO2 ABG O2 Saturation ABG Base Excess ABG Hemoglobin ABG Carboxyhemoglobin POC ABG HHb (Measured) ABG Methemoglobin Thang Test Hgb O2 Saturation Liter Flow Sodium Potassium Chloride Carbon Dioxide Anion Gap BUN Creatinine Est GFR ( Amer) Est GFR (Non-Af Amer) Random Glucose Calcium Total Bilirubin AST ALT Alkaline Phosphatase NT-Pro-B Natriuret Pep Total Protein Albumin Globulin Albumin/Globulin Ratio Urine Color Yellow Urine Clarity Clear Urine pH 5.0 Ur Specific [place] 1.018 Urine Protein 1+ H Urine Glucose (UA) Normal Urine Ketones Negative Urine Blood 3+ H Urine Nitrate Negative Urine Bilirubin Negative Urine Urobilinogen 4.0 Ur Leukocyte Esterase Neg Urine WBC (Auto) 1 Urine RBC (Auto) 15 H Ur Squamous Epith Cells < 1 Influenza Typ A,B (EIA) Negative for flu a/b 06/14/17 06/14/17 11:38 23:40 WBC RBC Hgb Hct MCV MCH MCHC RDW Plt Count MPV Neut % (Auto) Lymph % (Auto) [place] % (Auto) Eos % (Auto) Baso % (Auto) Neut # (Auto) Lymph # (Auto) [place] # (Auto) Eos # (Auto) Baso # (Auto) Puncture Site Rr pCO2 35 pO2 62 L HCO3 28.0 ABG pH 7.50 H ABG Total CO2 28.4 H ABG O2 Saturation 91.3 L ABG Base Excess 4.2 H ABG Hemoglobin 12.6 ABG Carboxyhemoglobin 3.0 H POC ABG HHb (Measured) 8.3 H ABG Methemoglobin 1.5 Thang Test Pos Hgb O2 Saturation 87.2 L Liter Flow 7.0 Sodium 135 Potassium 3.2 L Chloride 97 L Carbon Dioxide 28 Anion Gap 13 BUN 13 Creatinine 0.9 Est GFR ( Amer) > 60 Est GFR (Non-Af Amer) > 60 Random Glucose 132 H Calcium 8.4 L Total Bilirubin 1.3 AST 24 ALT 28 Alkaline Phosphatase 90 NT-Pro-B Natriuret Pep 497 Total Protein 6.9 Albumin 3.6 Globulin 3.3 Albumin/Globulin Ratio 1.1 Urine Color Urine Clarity Urine pH Ur Specific [place] Urine Protein Urine Glucose (UA) Urine Ketones Urine Blood Urine Nitrate Urine Bilirubin Urine Urobilinogen Ur Leukocyte Esterase Urine WBC (Auto) Urine RBC (Auto) Ur Squamous Epith Cells Influenza Typ A,B (EIA) - EKG Data EKG Interpreted by: ER Physician EKG shows normal: Sinus rhythm (normal), ST-T waves (non-specific) Rate: Normal (87) - EKG Data Interpretation: Acute Ischemia (negative), Other (occassional premature atrial contractions) Medical Decision Making Medical Decision Making: Impression: COPD with exacerbation with hypoxia. Orders: * EKG * Chest X-Ray * Tylenol 975 mg PO * Albuterol 10 mg INH * Prenisolone 125 mg IVP * Blood Culture * Nebulizer Will re-evaluate after orders are completed and one hour of nebulizer is used. Patient will most likely be admitted for hypoxia.
[2017-06-15 01:33] LABS: LYMPHOCYTE 1 % (20-40); MONOCYTE 7 % (0-10); NEUTROPHIL 92 % (50-75); PLATELET ESTIMATE NORMAL (NORMAL); TOTAL CELLS COUNTED 100
[2017-06-15] MEDS ORDERED: Albuterol-Ipratrop 3 mg / 0.5 (3 ml) UD INH PRN (01:59)
[2017-06-15] MEDS ORDERED: Albuterol-Ipratrop 3 mg / 0.5 (3 ml) UD INH SCH (02:00)
--- NOTE | 2017-06-15 02:06 | CP.PCM.HP ---
<Lisa Bobby - Last Filed: 06/15/17 02:01> History of Present Illness - History of Present Illness History of Present Illness: H&P: 57 year old male with past medical history of HTN and COPD presented to hospital for shortness of breath, cough x 1 week. Patient states that for past week he had a productive cough with greenish sputum. Patient was seen at [facility] ED for similar symptoms 1 week ago and at that time was told that symptoms likely due to asthma exacerbation. he was discharged from ED with inhaler and prednisone. Patient states his symptoms did not improve with the steroids and he was unsure how to use the inhaler. For one week, patient also complains of chest congestion, shortness of breath, rhinorrhea, sinus congestion and right ear pressure. patient has been using Nyquill and Dayquill at home for symptoms with mild relief. In the ED, patient is noted to have oxygen saturation of 89% on 4 L O2 NC after duoneb tx. and solumedrol. Patient does complain of shortness of breath. Denies having any CP, abdominal pain, N/V /D/C, dizziness. PMHx: HTN, asthma Sx: inguinal hernia repair Meds: started on Norvasc 5 mg po qd 1 week ago Social: 1/ ppd x 30 yrs, smokes marijuana daily, denies ETOH use NKDA No PMD Present on Admission - Present on Admission Any Indicators Present on Admission: No Review of Systems - Constitutional Constitutional: Fever. absent: Chills - EENT Eyes: absent: Blurred Vision, Change in Vision Ears: Ear Pain (right ear ) Nose/Mouth/Throat: Sinus Pressure. absent: Nasal Congestion, Nasal Discharge, Sore Throat - Cardiovascular Cardiovascular: Dyspnea. absent: Chest Pain, Leg Edema, Lightheadedness, Pedal Edema - Respiratory Respiratory: Cough, Dyspnea, Dyspnea on Exertion, Chest Congestion. absent: Wheezing, Stridor, Pain with Coughing - Gastrointestinal Gastrointestinal: absent: Abdominal Pain, Constipation, Diarrhea, Nausea, Vomiting - Musculoskeletal Musculoskeletal: absent: Back Pain - Integumentary Integumentary: absent: Acne, Lesions, Rash - Psychiatric Psychiatric: absent: Anxiety, Depression Past Patient History - Past Social History Smoking Status: Heavy Smoker > 10 Cigarettes Daily Chewing Tobacco Use: No Cigar Use: No Alcohol: None Drugs: Cannabis Home Situation {Lives}: Alone - CARDIAC Hx Hypertension: Yes - PULMONARY Hx Asthma: Yes Hx Bronchitis: Yes - MUSCULOSKELETAL/RHEUMATOLOGICAL Hx Musculoskeletal Disorders: Yes Hx Back Pain: Yes - PSYCHIATRIC Hx Substance Use: Yes - SURGICAL HISTORY Hx Surgeries: Yes Hx Herniorrhaphy: Yes Meds Allergies/Adverse Reactions: Allergies Allergy/AdvReac Type Severity Reaction Status Date / Time No Known Allergies Allergy Verified 06/07/17 16:31 Physical Exam - Constitutional Appears: Non-toxic, No Acute Distress - Head Exam Head Exam: ATRAUMATIC - ENT Exam ENT Exam: Mucous Membranes Moist - Respiratory Exam Respiratory Exam: Rales. absent: Accessory Muscle Use, Rhonchi, Wheezes, Respiratory Distress Additional comments: 89% on 4L NC. - Cardiovascular Exam Cardiovascular Exam: REGULAR RHYTHM, +S1, +S2. absent: Diastolic murmur, Gallop , Rubs, Systolic Murmur - GI/Abdominal Exam GI & Abdominal Exam: Normal Bowel Sounds, Soft. absent: Distended, Firm, Guarding, Rigid, Tenderness - Extremities Exam Extremities exam: Negative for: pedal edema, tenderness - Neurological Exam Neurological exam: Alert, Oriented x3 - Psychiatric Exam Psychiatric exam: Normal Affect, Normal Mood - Skin Skin Exam: Diaphoretic, Dry, Intact, Normal Color, Warm Results - Vital Signs Recent Vital Signs: Last Vital Signs Temp 101.3 F H 06/15/17 00:31 Pulse 94 H 06/15/17 00:31 Resp 20 06/15/17 00:31 BP 131/61 06/15/17 00:31 Pulse Ox 92 L 06/15/17 00:31 - Labs Result Diagrams: 06/14/17 11:38 06/14/17 11:38 Labs: Laboratory Results - last 24 hr 06/14/17 06/14/17 06/14/17 11:38 11:38 11:38 WBC 21.3 H D RBC 3.85 L Hgb 12.4 Hct 36.9 MCV 95.7 H MCH 32.1 H MCHC 33.5 RDW 13.2 Plt Count 239 MPV 9.0 Neut % (Auto) 88.1 H Lymph % (Auto) 3.7 L [place] % (Auto) 7.7 Eos % (Auto) 0.1 Baso % (Auto) 0.4 Neut # (Auto) 18.7 H Lymph # (Auto) 0.8 L [place] # (Auto) 1.6 H Eos # (Auto) 0.0 Baso # (Auto) 0.1 Neutrophils % (Manual) 92 H Lymphocytes % (Manual) 1 L Monocytes % (Manual) 7 Platelet Estimate Normal Puncture Site pCO2 pO2 HCO3 ABG pH ABG Total CO2 ABG O2 Saturation ABG Base Excess ABG Hemoglobin ABG Carboxyhemoglobin POC ABG HHb (Measured) ABG Methemoglobin Thang Test Hgb O2 Saturation Liter Flow Sodium Potassium Chloride Carbon Dioxide Anion Gap BUN Creatinine Est GFR ( Amer) Est GFR (Non-Af Amer) Random Glucose Calcium Total Bilirubin AST ALT Alkaline Phosphatase NT-Pro-B Natriuret Pep Total Protein Albumin Globulin Albumin/Globulin Ratio Urine Color Yellow Urine Clarity Clear Urine pH 5.0 Ur Specific [place] 1.018 Urine Protein 1+ H Urine Glucose (UA) Normal Urine Ketones Negative Urine Blood 3+ H Urine Nitrate Negative Urine Bilirubin Negative Urine Urobilinogen 4.0 Ur Leukocyte Esterase Neg Urine WBC (Auto) 1 Urine RBC (Auto) 15 H Ur Squamous Epith Cells < 1 Influenza Typ A,B (EIA) Negative for flu a/b 06/14/17 06/14/17 11:38 23:40 WBC RBC Hgb Hct MCV MCH MCHC RDW Plt Count MPV Neut % (Auto) Lymph % (Auto) [place] % (Auto) Eos % (Auto) Baso % (Auto) Neut # (Auto) Lymph # (Auto) [place] # (Auto) Eos # (Auto) Baso # (Auto) Neutrophils % (Manual) Lymphocytes % (Manual) Monocytes % (Manual) Platelet Estimate Puncture Site Rr pCO2 35 pO2 62 L HCO3 28.0 ABG pH 7.50 H ABG Total CO2 28.4 H ABG O2 Saturation 91.3 L ABG Base Excess 4.2 H ABG Hemoglobin 12.6 ABG Carboxyhemoglobin 3.0 H POC ABG HHb (Measured) 8.3 H ABG Methemoglobin 1.5 Thang Test Pos Hgb O2 Saturation 87.2 L Liter Flow 7.0 Sodium 135 Potassium 3.2 L Chloride 97 L Carbon Dioxide 28 Anion Gap 13 BUN 13 Creatinine 0.9 Est GFR ( Amer) > 60 Est GFR (Non-Af Amer) > 60 Random Glucose 132 H Calcium 8.4 L Total Bilirubin 1.3 AST 24 ALT 28 Alkaline Phosphatase 90 NT-Pro-B Natriuret Pep 497 Total Protein 6.9 Albumin 3.6 Globulin 3.3 Albumin/Globulin Ratio 1.1 Urine Color Urine Clarity Urine pH Ur Specific [place] Urine Protein Urine Glucose (UA) Urine Ketones Urine Blood Urine Nitrate Urine Bilirubin Urine Urobilinogen Ur Leukocyte Esterase Urine WBC (Auto) Urine RBC (Auto) Ur Squamous Epith Cells Influenza Typ A,B (EIA) Assessment & Plan - Assessment and Plan (Free Text) Assessment: 57 year old male with past medical history of HTN and COPD is admitted for bilateral pneumonia. CXR on admission showed bilateral pleural effusions ( report pending) that is changed from previous xray from 1 week ago. Patient is also noted to have leukocytosis and left shift likely due to infection. Although, pt has been taking prednisone for past few days. Pnuemonia - Admit to tele. - Pt will be placed on BiPAP for respiratory support. - Will check lactic acid and procal - Blood and sputum cultures ordered - Start on rocephin and zithromax - continue solumedrol 40 mg IVP QD - Duonebs q6 tiera, Q3 prn HTN - Will continue home medication Norvasc 5 mg po qd Prophylaxis - Protonix - SCDs - Lovenox Case discussed with Dr. Arzate. - Date & Time Date: 06/15/17 Time: 02:08 <Daniel Arzate - Last Filed: 06/15/17 06:09> Results - Vital Signs Recent Vital Signs: Last Vital Signs Temp 98.4 F 06/15/17 02:30 Pulse 74 06/15/17 03:56 Resp 20 06/15/17 02:30 BP 145/79 06/15/17 02:30 Pulse Ox 90 L 06/15/17 03:18 - Labs Result Diagrams: 06/14/17 11:38 06/14/17 11:38 Labs: Laboratory Results - last 24 hr 06/14/17 06/14/17 06/14/17 11:38 11:38 11:38 WBC 21.3 H D RBC 3.85 L Hgb 12.4 Hct 36.9 MCV 95.7 H MCH 32.1 H MCHC 33.5 RDW 13.2 Plt Count 239 MPV 9.0 Neut % (Auto) 88.1 H Lymph % (Auto) 3.7 L [place] % (Auto) 7.7 Eos % (Auto) 0.1 Baso % (Auto) 0.4 Neut # (Auto) 18.7 H Lymph # (Auto) 0.8 L [place] # (Auto) 1.6 H Eos # (Auto) 0.0 Baso # (Auto) 0.1 Neutrophils % (Manual) 92 H Lymphocytes % (Manual) 1 L Monocytes % (Manual) 7 Platelet Estimate Normal Puncture Site pCO2 pO2 HCO3 ABG pH ABG Total CO2 ABG O2 Saturation ABG Base Excess ABG Hemoglobin ABG Carboxyhemoglobin POC ABG HHb (Measured) ABG Methemoglobin Thang Test Hgb O2 Saturation Liter Flow Sodium Potassium Chloride Carbon Dioxide Anion Gap BUN Creatinine Est GFR ( Amer) Est GFR (Non-Af Amer) Random Glucose Lactic Acid Calcium Total Bilirubin AST ALT Alkaline Phosphatase NT-Pro-B Natriuret Pep Total Protein Albumin Globulin Albumin/Globulin Ratio Urine Color Yellow Urine Clarity Clear Urine pH 5.0 Ur Specific [place] 1.018 Urine Protein 1+ H Urine Glucose (UA) Normal Urine Ketones Negative Urine Blood 3+ H Urine Nitrate Negative Urine Bilirubin Negative Urine Urobilinogen 4.0 Ur Leukocyte Esterase Neg Urine WBC (Auto) 1 Urine RBC (Auto) 15 H Ur Squamous Epith Cells < 1 Influenza Typ A,B (EIA) Negative for flu a/b 06/14/17 06/14/17 06/15/17 11:38 23:40 02:14 WBC RBC Hgb Hct MCV MCH MCHC RDW Plt Count MPV Neut % (Auto) Lymph % (Auto) [place] % (Auto) Eos % (Auto) Baso % (Auto) Neut # (Auto) Lymph # (Auto) [place] # (Auto) Eos # (Auto) Baso # (Auto) Neutrophils % (Manual) Lymphocytes % (Manual) Monocytes % (Manual) Platelet Estimate Puncture Site Rr pCO2 35 pO2 62 L HCO3 28.0 ABG pH 7.50 H ABG Total CO2 28.4 H ABG O2 Saturation 91.3 L ABG Base Excess 4.2 H ABG Hemoglobin 12.6 ABG Carboxyhemoglobin 3.0 H POC ABG HHb (Measured) 8.3 H ABG Methemoglobin 1.5 Thang Test Pos Hgb O2 Saturation 87.2 L Liter Flow 7.0 Sodium 135 Potassium 3.2 L Chloride 97 L Carbon Dioxide 28 Anion Gap 13 BUN 13 Creatinine 0.9 Est GFR ( Amer) > 60 Est GFR (Non-Af Amer) > 60 Random Glucose 132 H Lactic Acid 1.0 Calcium 8.4 L Total Bilirubin 1.3 AST 24 ALT 28 Alkaline Phosphatase 90 NT-Pro-B Natriuret Pep 497 Total Protein 6.9 Albumin 3.6 Globulin 3.3 Albumin/Globulin Ratio 1.1 Urine Color Urine Clarity Urine pH Ur Specific [place] Urine Protein Urine Glucose (UA) Urine Ketones Urine Blood Urine Nitrate Urine Bilirubin Urine Urobilinogen Ur Leukocyte Esterase Urine WBC (Auto) Urine RBC (Auto) Ur Squamous Epith Cells Influenza Typ A,B (EIA) Assessment & Plan - Date & Time Date: 06/15/17 (I have seen and examined the patient. I agree with the findings and plan of care as documented by Dr. Bobby. Patient with bilateral pneumonia. Hypoxia. Place on bipap. Treat history of asthma with nebs. Rocephin and Azithromycin for now. Check blood and sputum cultures. Lactate and procalcitonin. Monitor for acute changes.) Time: 06:08 Attending/Attestation - Attestation I have personally seen and examined this patient.: Yes I have fully participated in the care of the patient.: Yes I have reviewed all pertinent clinical information: Yes
[2017-06-15] MEDS ORDERED: Azithromycin 500 MG in Sodium Chloride 0.9% 250 ML IVPB STA (02:12)
[2017-06-15] MEDS ORDERED: Albuterol 0.083% Inhal Sol (2.5 mg/3 mL) UD INH PRN (07:09)
--- NOTE | 2017-06-15 07:10 | C.PDOC ---
History Of Present Illness Pt is a 57 yo smoker who has had cough for the past 4 days.Coiugh is productive of yellow sputum.Pt was seen by PMD sev days ago,was started on bronchodilators and steroids without improvement.Denies hx COPD,no cardiac hx Chief Complaint (Nursing): Cough, Cold, Congestion History/Exam Limitations: no limitations Onset/Duration Of Symptoms: Days, Waxing/Waning Initiating Event: Upper Respiratory Illness Exacerbating Factor(s): Coughing Past Medical History Vital Signs: Last Vital Signs Temp 98.4 F 06/15/17 02:30 Pulse 74 06/15/17 03:56 Resp 20 06/15/17 02:30 BP 145/79 06/15/17 02:30 Pulse Ox 90 L 06/15/17 03:18 - Medical History PMH: Asthma, Bronchitis, HTN Surgical History: Back Surgery Family History: States: Unknown Family Hx - Social History Hx Tobacco Use: Yes (smoker) Hx Alcohol Use: No Hx Substance Use: Yes (marijuana) - Immunization History Hx Tetanus Toxoid Vaccination: No Hx Influenza Vaccination: No Hx Pneumococcal Vaccination: No Review Of Systems Constitutional: Positive for: Chills Eyes: Negative for: Pain ENT: Negative for: Ear Pain, Ear Discharge, Nose Pain Cardiovascular: Negative for: Chest Pain Respiratory: Positive for: Cough, Shortness of Breath Gastrointestinal: Negative for: Nausea, Vomiting Genitourinary: Negative for: Dysuria, Frequency Musculoskeletal: Negative for: Neck Pain, Shoulder Pain Physical Exam - Physical Exam Appears: In Acute Distress Skin: Normal Color Head: Atraumatic, Normacephalic Eye(s): bilateral: Normal Inspection, PERRL, EOMI Ear(s): Bilateral: Normal Nose: Normal Oral Mucosa: Moist Tongue: Normal Appearing Lips: Normal Appearing Neck: Normal Chest: Symmetrical Cardiovascular: Rhythm Regular Respiratory: Decreased Breath Sounds, Accessory Muscle Use, Wheezing Gastrointestinal/Abdominal: Normal Exam Back: Normal Inspection Neurological/Psych: Oriented x3, Normal Speech, Normal Cognition ED Course And Treatment - Laboratory Results Result Diagrams: 06/14/17 11:38 06/14/17 11:38 Lab Interpretation: Abnormal Interpretation Of Abnormal: Marked leukocytosis,hypoxia O2 Sat by Pulse Oximetry: 90 - Radiology CXR: Interpreted by Co CXR Interpretation: Yes: Infiltrates (bilat pneumonias) Disposition - Disposition Disposition: HOSPITALIZED Disposition Time: 07:14 Condition: GOOD - Clinical Impression Clinical Impression: Pneumonia
[2017-06-15] MEDS: Albuterol-Ipratrop 3 mg / 0.5 (3 ml) UD INH SCH ×2 (07:12→13:09)
--- NOTE | 2017-06-15 08:03 | RAD ---
Chest x-ray single frontal view History: Shortness of breath. Comparison: 06/07/2017 Findings: Prominent consolidative opacification seen within the right mid to lower lung zone as well as the left mid to lower lung zone. More dense focal masslike consolidation at the lateral aspect of the right mid lung zone. Tortuous ectatic aorta. Mild cardiomegaly. Degenerative changes in the spine and shoulders. Impression: Prominent consolidative opacification seen within the right mid to lower lung zone as well as the left mid to lower lung zone. More dense focal masslike consolidation at the lateral aspect of the right mid lung zone. Tortuous ectatic aorta. Mild cardiomegaly.
--- NOTE | 2017-06-15 09:18 | CP.PCM.PN ---
<Adela Olivia V - Last Filed: 06/15/17 17:10> Objective - Vital Signs/Intake and Output Vital Signs (last 24 hours): Temp Pulse Resp BP Pulse Ox 98.2 F 66 20 165/92 H 92 L 06/15/17 16:00 06/15/17 16:00 06/15/17 16:00 06/15/17 16:00 06/15/17 16:00 Intake and Output: 06/15/17 06/15/17 06:59 18:59 Intake Total 400 Balance 400 - Medications Medications: Current Medications Acetaminophen (Tylenol 325mg Tab) 650 mg PO Q6 PRN PRN Reason: Fever >100.4 F Albuterol Sulfate (Albuterol 0.083% Inhal Julia (2.5 Mg/3 Ml) Ud) 3 mg INH RQ2 PRN PRN Reason: Shortness of Breath Albuterol/Ipratropium (Duoneb 3 Mg/0.5 Mg (3 Ml) Ud) 3 ml INH RQ4 [facility] Last Admin: 06/15/17 13:09 Dose: Not Given Amlodipine Besylate (Norvasc) 10 mg PO DAILY [facility] Enoxaparin Sodium (Lovenox) 40 mg SC DAILY [facility] Last Admin: 06/15/17 10:02 Dose: Not Given Guaifenesin (Mucinex La) 600 mg PO BID [facility] Last Admin: 06/15/17 10:01 Dose: 600 mg Azithromycin 500 mg/ Sodium (Chloride) 250 mls @ 250 mls/hr IVPB DAILY [facility] PRN Reason: Protocol Ceftriaxone Sodium (Rocephin Iv 1 Gm Duplex) 50 mls @ 100 mls/hr IVPB DAILY [facility] PRN Reason: Protocol Methylprednisolone (Solu-Medrol) 40 mg IVP DAILY [facility] Last Admin: 06/15/17 10:02 Dose: 40 mg Pantoprazole Sodium (Protonix Ec Tab) 40 mg PO DAILY [facility] Last Admin: 06/15/17 10:02 Dose: 40 mg Saccharomyces Boulardii (Florastor) 250 mg PO BID [facility] - Labs Labs: 06/15/17 11:24 06/15/17 11:24 Attending/Attestation - Attestation I have personally seen and examined this patient.: Yes I have fully participated in the care of the patient.: Yes I have reviewed all pertinent clinical information, including history, physical exam and plan: Yes Notes (Text): Patient seen, examined and case discussed with day-time resident. Patient reports history of asthma, diagnosed by his PMD from spirometry. Denies hx of intubation, does not known his triggers, and does not use any inhalers or pumps. Patient reports he is a smoker 1 pack per day about 25 years ago, stopped last wednesday when he met his PMD. Patient was counselled at bedside about the deleterious effects of smoking including cancer which is aware, he was offered tobacco cessation aids but does not want. I've discussed chest xray result with the patient, will continue bronchodilators and IV abx to cover for pneumonia. Will consider CT Chest to better characterize since there is mass- like portion on chest xray. Patient with known hematuria but has not had workup yet. Assessment/Plan 1) Dyspnea Community Acquired Pneumonia * monitor on telemetry * Pulmonary (Dr. Salguero) on consult-->help appreciated * Cxray: prominent consolidative opacification seen within the right mid to lower lung zone as well as the left mid to lower lung zone. More dense focal masslike consolidation at the lateral aspect of the right mid lung zone. Tortuous ectatic aorta. Mild cardiomegaly * Ordered for d-dimer-->if positive-->Order for CT Chest r/o PE * Pt will be placed on nasal cannula or BiPAP as needed for respiratory support. * Order for urine Legionella, Strep pneumoniae urine, Mycoplasma IgM * Lactic acid: 1 and procal: .32 * Blood and sputum cultures ordered * negative flu * C.w Rocephin 1 gram IVPB daily * C/w Azithromycin 500mg IVPB daily 2) History of Asthma/COPD * Duoneb 3ml INHRQ4 * Albuterol 3ml INH RQ2H PRN shortness of breathe * Solumedrol 40 mg IVP QDdaily * Monitor Pre and post peak flow * Patient varies between nasal canula vs Bipap high 80s low 90s oxygen saturation 3) Tobacco cessation * Patient was counselled but does not want any aids 4) Hypertension * c/w Norvasc 5mg PO daily * Given additional dose of Norvac 5mg today-->will restart at Norvasc 10mg PO daily 5) Hematuria * Noted in UA * Ordered for urine culture r/o infection-->patient is on Rocephin * Ordered for renal/bladder US r/o mass in light of smoking hx 6) Hypokalemia * monitor and replete 7) Prophylaxis * Protonix 40mg IV q daily * SCDs * Lovenox 40mg subqdaily * Florastor 250mg PO BID Disposition: Continue IV abx, nebulizers, ordered for CT angio r/o PE <Luz Conner - Last Filed: 06/15/17 17:37> Subjective - Date & Time of Evaluation Date of Evaluation: 06/15/17 Time of Evaluation: 07:00 - Subjective Subjective: PGY1- Medicine Note Patient seen and examined at bedside and in no acute distress. Patient says he is feeling a little better than yesterday. Patient feels some shortness of breath and chills. Patient denies any chest pain, palpitations, abdominal pain, nausea, vomiting, constipation, or diarrhea. 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 Objective - Vital Signs/Intake and Output Vital Signs (last 24 hours): Temp Pulse Resp BP Pulse Ox 98.1 F 66 20 153/88 H 93 L 06/15/17 07:20 06/15/17 07:20 06/15/17 07:20 06/15/17 07:20 06/15/17 07:20 - Medications Medications: Current Medications Acetaminophen (Tylenol 325mg Tab) 650 mg PO Q6 PRN PRN Reason: Fever >100.4 F Albuterol Sulfate (Albuterol 0.083% Inhal Julia (2.5 Mg/3 Ml) Ud) 3 mg INH RQ2 PRN PRN Reason: Shortness of Breath Albuterol/Ipratropium (Duoneb 3 Mg/0.5 Mg (3 Ml) Ud) 3 ml INH RQ4 [facility] Last Admin: 06/15/17 07:12 Dose: 3 ml Amlodipine Besylate (Norvasc) 5 mg PO DAILY [facility] Enoxaparin Sodium (Lovenox) 40 mg SC DAILY [facility] Guaifenesin (Mucinex La) 600 mg PO BID [facility] Azithromycin 500 mg/ Sodium (Chloride) 250 mls @ 250 mls/hr IVPB DAILY [facility] PRN Reason: Protocol Ceftriaxone Sodium (Rocephin Iv 1 Gm Duplex) 50 mls @ 100 mls/hr IVPB DAILY [facility] PRN Reason: Protocol Methylprednisolone (Solu-Medrol) 40 mg IVP DAILY [facility] Pantoprazole Sodium (Protonix Ec Tab) 40 mg PO DAILY [facility] Pneumococcal Polyvalent Vaccine (Pneumovax 23 Vaccine) 0.5 ml IM .ONCE ONE Stop: 06/17/17 10:01 Potassium Chloride (K-Dur 20 Meq Er Tab) 20 meq PO ONCE ONE Stop: 06/15/17 10:01 - Labs Labs: 06/14/17 11:38 06/14/17 11:38 - Constitutional Appears: Non-toxic, No Acute Distress - Head Exam Head Exam: ATRAUMATIC, NORMAL INSPECTION, NORMOCEPHALIC - Eye Exam Eye Exam: EOMI, Normal appearance Pupil Exam: NORMAL ACCOMODATION - ENT Exam ENT Exam: Mucous Membranes Moist - Respiratory Exam Respiratory Exam: Decreased Breath Sounds, Rhonchi (b/l lower lobe rhonchi), NORMAL BREATHING PATTERN - Cardiovascular Exam Cardiovascular Exam: REGULAR RHYTHM, RRR, +S1, +S2 - GI/Abdominal Exam GI & Abdominal Exam: Soft, Normal Bowel Sounds. absent: Tenderness - Extremities Exam Extremities Exam: Full ROM, Normal Inspection. absent: Pedal Edema - Back Exam Back Exam: NORMAL INSPECTION. absent: paraspinal tenderness - Neurological Exam Neurological Exam: Alert, Awake, Oriented x3 - Psychiatric Exam Psychiatric exam: Normal Affect, Normal Mood - Skin Skin Exam: Intact, Normal Color, Warm Assessment and Plan - Assessment and Plan (Free Text) Assessment: Pnuemonia - Admit to tele. -Cxray: prominent consolidative opacification seen within the right mid to lower lung zone as well as the left mid to lower lung zone. More dense focal masslike consolidation at the lateral aspect of the right mid lung zone. Tortuous ectatic aorta. Mild cardiomegaly. - Pt will be placed on nasal cannula or BiPAP as needed for respiratory support. - lactic acid: 1 and procal: .32 - Blood and sputum cultures ordered -f/u legionella, mycoplasma, strep pneumo -negative flu -Pulm consulted, Dr. Salguero, help appreciated Meds: - Continue rocephin and zithromax - continue solumedrol 40 mg IVP QD - Duonebs q6 tiera, Q3 prn Elevated D-Dimer D-Dimer 495 f/u CTA HTN - restarted home medication Norvasc 5 mg po qd (which patient has not taken in years) Hematuria -UA: 3+ blood, 15 RBC -f/u renal/bladder ultrasound -no gross hematuria Prophylaxis - Protonix - SCDs - Lovenox - Florastor BID
--- NOTE | 2017-06-15 09:31 | CP.PCM.PCO ---
Physician Communication Note - Physician Communication Note Physician Communication Note: hold pneumonia vaccine, hospitalized for pneumonia
[2017-06-15] MEDS ORDERED: Azithromycin 500 MG in Sodium Chloride 0.9% 250 ML IVPB SCH (10:00)
[2017-06-15] MEDS ORDERED: cefTRIAXone IV 1 gm in Dextros 50 ML IVPB SCH (10:00)
[2017-06-15] MEDS ORDERED: Potassium Chloride 20 mEq ER Tab PO ONE (10:00)
[2017-06-15] MEDS: guaiFENesin 600 mg ER Tab PO SCH ×2 (10:01→17:40)
[2017-06-15] MEDS: Pantoprazole 40 mg EC Tab PO SCH (10:02)
[2017-06-15] MEDS: Enoxaparin 40 mg Syringe SC SCH (10:02)
[2017-06-15] MEDS: MethylPREDNISolone 40 mg Vial IVP SCH (10:02)
[2017-06-15 11:35] LABS: BASO % 0.1 % (0.0-2.0); HEMOGLOBIN 11.4 g/dL (12.0-18.0); LYMPH # 0.3 K/uL (1.0-4.3); MEAN CELL VOLUME 95.9 fL (80.0-94.0); MEAN CORPUSCULAR HEMOGLOBIN 32.4 pg (27.0-31.0); MEAN CORPUSCULAR HGB CONC 33.8 g/dL (33.0-37.0); MONO # 0.7 K/uL (0.0-0.8); NEUT # 16.5 K/uL (1.8-7.0); NEUT % 93.9 % (50.0-75.0); PLATELET COUNT 204 K/uL (130-400); RBC 3.51 Mil/uL (4.40-5.90); RED CELL DISTRIBUTION WIDTH 13.3 % (11.5-14.5); WHITE BLOOD COUNT 17.6 K/uL (4.8-10.8)
[2017-06-15 11:51] LABS: ALB/GLOB RATIO 1.2 (1.0-2.1); ALBUMIN 3.3 g/dL (3.5-5.0); ALT/SGPT 23 U/L (21-72); AST/SGOT 22 U/L (17-59); BLOOD UREA NITROGEN 15 mg/dL (9-20); CALCIUM 8.5 mg/dl (8.6-10.4); GFR AFRICAN-AMERICAN > 60; GFR NON-AFRICAN AMERICAN > 60
[2017-06-15] MEDS ORDERED: Potassium Chloride 20 mEq ER Tab PO STA (12:08)
[2017-06-15 12:19] LABS: BANDS 1 % (0-2); LYMPHOCYTE 2 % (20-40); MONOCYTE 3 % (0-10); NEUTROPHIL 94 % (50-75); PLATELET ESTIMATE NORMAL (NORMAL); TOTAL CELLS COUNTED 100
[2017-06-15 12:20] LABS: HYPOCHROMIC SLIGHT
--- NOTE | 2017-06-15 17:02 | CP.PCM.CON ---
History of Present Illness - History of Present Illness History of Present Illness: HPI: 57M with PMHx of asthma, HTN presented to the ED with cough x 1 week. He reported that the cough is productive sputum. Patient was seen by the [facility] ED several days ago and started on bronchodilators and steroids without improvement. He also reported chest congestion, shortness of rbeath, rhinorrhea , sinus congestion and right ear pressure. Nyquill and dayquill at home have provided mild symptomatic relief.The patient was admitted to the hospitalist service. Today the patient was seen and examined on the med'surg floors at bedside. His cough is now productive of thick green sputum and he still feels very congested. PMHx: Asthma, HTN PSH: inguinal hernia repair at [facility], discectomy at [facility] Meds: [facility] Allergies: NKDA SH: 15 pack year tobacco hx, smokes marijuana daily, denies EtOH use Assessment and Plan: 1. Pneumonia - TMax 102.4, now 98.1 - CBC 06/14: WBC 17.6/93.9% neutros - CXR 06/14: consolidations in the right mid to lower lung zones as well as the left mid to lower lung zones - rocephin - sputum and blood cx pending - Pro-calcitonin 2. COPD - duonebs - solumedrol 3. Hypoxia - Saturating 89-93% on NC 4L - ABG 06/14: 7.50/ 35/ 62/ 28 Past Patient History - Past Social History Smoking Status: Light Smoker < 10 Cigarettes Daily - CARDIAC Hx Hypertension: Yes - PULMONARY Hx Asthma: Yes Hx Bronchitis: Yes - MUSCULOSKELETAL/RHEUMATOLOGICAL Hx Falls: No - PSYCHIATRIC Hx Substance Use: Yes (marijuana) - SURGICAL HISTORY Hx Surgeries: Yes Hx Herniorrhaphy: Yes - ANESTHESIA Hx Anesthesia: No Hx Anesthesia Reactions: No Hx Malignant Hyperthermia: No Has any member of the family had a problem w/ anesthesia?: No Meds Allergies/Adverse Reactions: Allergies Allergy/AdvReac Type Severity Reaction Status Date / Time No Known Allergies Allergy Verified 06/07/17 16:31 - Medications Medications: Current Medications Acetaminophen (Tylenol 325mg Tab) 650 mg PO Q6 PRN PRN Reason: Fever >100.4 F Albuterol Sulfate (Albuterol 0.083% Inhal Julia (2.5 Mg/3 Ml) Ud) 3 mg INH RQ2 PRN PRN Reason: Shortness of Breath Albuterol/Ipratropium (Duoneb 3 Mg/0.5 Mg (3 Ml) Ud) 3 ml INH RQ4 [facility] Last Admin: 06/15/17 13:09 Dose: Not Given Amlodipine Besylate (Norvasc) 5 mg PO DAILY [facility] Last Admin: 06/15/17 10:01 Dose: 5 mg Enoxaparin Sodium (Lovenox) 40 mg SC DAILY [facility] Last Admin: 06/15/17 10:02 Dose: Not Given Guaifenesin (Mucinex La) 600 mg PO BID [facility] Last Admin: 06/15/17 10:01 Dose: 600 mg Azithromycin 500 mg/ Sodium (Chloride) 250 mls @ 250 mls/hr IVPB DAILY [facility] PRN Reason: Protocol Ceftriaxone Sodium (Rocephin Iv 1 Gm Duplex) 50 mls @ 100 mls/hr IVPB DAILY [facility] PRN Reason: Protocol Methylprednisolone (Solu-Medrol) 40 mg IVP DAILY [facility] Last Admin: 06/15/17 10:02 Dose: 40 mg Pantoprazole Sodium (Protonix Ec Tab) 40 mg PO DAILY [facility] Last Admin: 06/15/17 10:02 Dose: 40 mg Saccharomyces Boulardii (Florastor) 250 mg PO BID [facility] Results - Vital Signs Recent Vital Signs: Last Vital Signs Temp 98.2 F 06/15/17 16:00 Pulse 66 06/15/17 16:00 Resp 20 06/15/17 16:00 BP 165/92 H 06/15/17 16:00 Pulse Ox 92 L 06/15/17 16:00 - Labs Result Diagrams: 06/15/17 11:24 06/15/17 11:24 Labs: Laboratory Results - last 24 hr 06/14/17 06/14/17 06/14/17 11:38 11:38 11:38 WBC 21.3 H D RBC 3.85 L Hgb 12.4 Hct 36.9 MCV 95.7 H MCH 32.1 H MCHC 33.5 RDW 13.2 Plt Count 239 MPV 9.0 Neut % (Auto) 88.1 H Lymph % (Auto) 3.7 L [place] % (Auto) 7.7 Eos % (Auto) 0.1 Baso % (Auto) 0.4 Neut # (Auto) 18.7 H Lymph # (Auto) 0.8 L [place] # (Auto) 1.6 H Eos # (Auto) 0.0 Baso # (Auto) 0.1 Neutrophils % (Manual) 92 H Band Neutrophils % Lymphocytes % (Manual) 1 L Monocytes % (Manual) 7 Platelet Estimate Normal Hypochromasia (manual) D-Dimer, Quantitative Puncture Site pCO2 pO2 HCO3 ABG pH ABG Total CO2 ABG O2 Saturation ABG Base Excess ABG Hemoglobin ABG Carboxyhemoglobin POC ABG HHb (Measured) ABG Methemoglobin Thang Test Hgb O2 Saturation Liter Flow Sodium Potassium Chloride Carbon Dioxide Anion Gap BUN Creatinine Est GFR ( Amer) Est GFR (Non-Af Amer) Random Glucose Lactic Acid Calcium Magnesium Total Bilirubin AST ALT Alkaline Phosphatase NT-Pro-B Natriuret Pep Total Protein Albumin Globulin Albumin/Globulin Ratio Procalcitonin Urine Color Yellow Urine Clarity Clear Urine pH 5.0 Ur Specific [place] 1.018 Urine Protein 1+ H Urine Glucose (UA) Normal Urine Ketones Negative Urine Blood 3+ H Urine Nitrate Negative Urine Bilirubin Negative Urine Urobilinogen 4.0 Ur Leukocyte Esterase Neg Urine WBC (Auto) 1 Urine RBC (Auto) 15 H Ur Squamous Epith Cells < 1 Influenza Typ A,B (EIA) Negative for flu a/b Ur L.pneumophila Ag 06/14/17 06/14/17 06/15/17 11:38 23:40 02:12 WBC RBC Hgb Hct MCV MCH MCHC RDW Plt Count MPV Neut % (Auto) Lymph % (Auto) [place] % (Auto) Eos % (Auto) Baso % (Auto) Neut # (Auto) Lymph # (Auto) [place] # (Auto) Eos # (Auto) Baso # (Auto) Neutrophils % (Manual) Band Neutrophils % Lymphocytes % (Manual) Monocytes % (Manual) Platelet Estimate Hypochromasia (manual) D-Dimer, Quantitative Puncture Site Rr pCO2 35 pO2 62 L HCO3 28.0 ABG pH 7.50 H ABG Total CO2 28.4 H ABG O2 Saturation 91.3 L ABG Base Excess 4.2 H ABG Hemoglobin 12.6 ABG Carboxyhemoglobin 3.0 H POC ABG HHb (Measured) 8.3 H ABG Methemoglobin 1.5 Thang Test Pos Hgb O2 Saturation 87.2 L Liter Flow 7.0 Sodium 135 Potassium 3.2 L Chloride 97 L Carbon Dioxide 28 Anion Gap 13 BUN 13 Creatinine 0.9 Est GFR ( Amer) > 60 Est GFR (Non-Af Amer) > 60 Random Glucose 132 H Lactic Acid Calcium 8.4 L Magnesium Total Bilirubin 1.3 AST 24 ALT 28 Alkaline Phosphatase 90 NT-Pro-B Natriuret Pep 497 Total Protein 6.9 Albumin 3.6 Globulin 3.3 Albumin/Globulin Ratio 1.1 Procalcitonin 0.32 Urine Color Urine Clarity Urine pH Ur Specific [place] Urine Protein Urine Glucose (UA) Urine Ketones Urine Blood Urine Nitrate Urine Bilirubin Urine Urobilinogen Ur Leukocyte Esterase Urine WBC (Auto) Urine RBC (Auto) Ur Squamous Epith Cells Influenza Typ A,B (EIA) Ur L.pneumophila Ag 06/15/17 06/15/17 06/15/17 02:14 11:24 11:24 WBC 17.6 H RBC 3.51 L Hgb 11.4 L Hct 33.7 L MCV 95.9 H MCH 32.4 H MCHC 33.8 RDW 13.3 Plt Count 204 MPV 9.0 Neut % (Auto) 93.9 H Lymph % (Auto) 2.0 L [place] % (Auto) 4.0 Eos % (Auto) 0.0 Baso % (Auto) 0.1 Neut # (Auto) 16.5 H Lymph # (Auto) 0.3 L [place] # (Auto) 0.7 Eos # (Auto) 0.0 Baso # (Auto) 0.0 Neutrophils % (Manual) 94 H Band Neutrophils % 1 Lymphocytes % (Manual) 2 L Monocytes % (Manual) 3 Platelet Estimate Normal Hypochromasia (manual) Slight D-Dimer, Quantitative Puncture Site pCO2 pO2 HCO3 ABG pH ABG Total CO2 ABG O2 Saturation ABG Base Excess ABG Hemoglobin ABG Carboxyhemoglobin POC ABG HHb (Measured) ABG Methemoglobin Thang Test Hgb O2 Saturation Liter Flow Sodium 137 Potassium 3.4 L Chloride 97 L Carbon Dioxide 27 Anion Gap 16 BUN 15 Creatinine 0.8 Est GFR ( Amer) > 60 Est GFR (Non-Af Amer) > 60 Random Glucose 292 H Lactic Acid 1.0 Calcium 8.5 L Magnesium 2.2 Total Bilirubin 0.8 AST 22 ALT 23 Alkaline Phosphatase 93 NT-Pro-B Natriuret Pep Total Protein 6.0 L Albumin 3.3 L Globulin 2.7 Albumin/Globulin Ratio 1.2 Procalcitonin Urine Color Urine Clarity Urine pH Ur Specific [place] Urine Protein Urine Glucose (UA) Urine Ketones Urine Blood Urine Nitrate Urine Bilirubin Urine Urobilinogen Ur Leukocyte Esterase Urine WBC (Auto) Urine RBC (Auto) Ur Squamous Epith Cells Influenza Typ A,B (EIA) Ur L.pneumophila Ag 06/15/17 06/15/17 14:09 15:29 WBC RBC Hgb Hct MCV MCH MCHC RDW Plt Count MPV Neut % (Auto) Lymph % (Auto) [place] % (Auto) Eos % (Auto) Baso % (Auto) Neut # (Auto) Lymph # (Auto) [place] # (Auto) Eos # (Auto) Baso # (Auto) Neutrophils % (Manual) Band Neutrophils % Lymphocytes % (Manual) Monocytes % (Manual) Platelet Estimate Hypochromasia (manual) D-Dimer, Quantitative 495 H Puncture Site pCO2 pO2 HCO3 ABG pH ABG Total CO2 ABG O2 Saturation ABG Base Excess ABG Hemoglobin ABG Carboxyhemoglobin POC ABG HHb (Measured) ABG Methemoglobin Thang Test Hgb O2 Saturation Liter Flow Sodium Potassium Chloride Carbon Dioxide Anion Gap BUN Creatinine Est GFR ( Amer) Est GFR (Non-Af Amer) Random Glucose Lactic Acid Calcium Magnesium Total Bilirubin AST ALT Alkaline Phosphatase NT-Pro-B Natriuret Pep Total Protein Albumin Globulin Albumin/Globulin Ratio Procalcitonin Urine Color Urine Clarity Urine pH Ur Specific [place] Urine Protein Urine Glucose (UA) Urine Ketones Urine Blood Urine Nitrate Urine Bilirubin Urine Urobilinogen Ur Leukocyte Esterase Urine WBC (Auto) Urine RBC (Auto) Ur Squamous Epith Cells Influenza Typ A,B (EIA) Ur L.pneumophila Ag Negative
[2017-06-15 17:32] LABS: MYCOPLASMA PNEUMONIAE IGM NEGATIVE (NEGATIVE)
[2017-06-15] MEDS ORDERED: Iodixanol 320 MG/ML 100 ML BOTTLE IV ONE (17:32)
[2017-06-15] MEDS: Saccharomyces Boulardi 250 mg Cap PO SCH (17:40)
--- NOTE | 2017-06-15 18:05 | US ---
PROCEDURE: Ultrasound of the Kidneys HISTORY: hematuria COMPARISON: None available. TECHNIQUE: Sonogram of the kidneys. FINDINGS: RIGHT KIDNEY: Measures: 10.8 cm. Normal in size, contour and echogenicity. No stone, solid mass lesion or hydronephrosis visualized. LEFT KIDNEY: Measures: 11.5 cm. Normal in size, contour and echogenicity. No stone, solid mass lesion or hydronephrosis visualized. OTHER FINDINGS: Distended urinary bladder measures 252.4 cc. No postvoid residual within the bladder. Bladder wall thin and smooth. Bilateral ureteral jets demonstrated. No intraluminal mass. IMPRESSION: Unremarkable examination of kidneys and urinary bladder.
--- NOTE | 2017-06-15 19:07 | CT ---
PROCEDURE: CT Chest with contrast (Pulmonary Angiogram) HISTORY: elevated d-dimer, shortness of breathe, mass xray? COMPARISON: None available. TECHNIQUE: Axial computed tomography images were obtained of the chest in the pulmonary arterial phase of enhancement. Coronal and sagittal reformatted images were created and reviewed. Intravenous contrast dose: 100 cc Visipaque 320 Radiation dose: Total exam DLP = 641.68 mGy-cm. This CT exam was performed using one or more of the following dose reduction techniques: Automated exposure control, adjustment of the mA and/or kV according to patient size, and/or use of iterative reconstruction technique. FINDINGS: PULMONARY ARTERIES: Unremarkable. No pulmonary embolism. AORTA: No acute findings. No thoracic aortic aneurysm. LUNGS: Multifocal interstitial/alveolar opacities. These are seen in the right upper lobe, right lower lobe and left upper lobe. There are ill-defined areas of confluency within these areas of mixed opacity. There is linear scar/ atelectasis in both lower lobes. PLEURAL SPACES: Unremarkable. No effusion or pneuomothorax. HEART: Unremarkable. No cardiomegaly. No significant pericardial effusion. LYMPH NODES: No lymphadenopathy. BONES, CHEST WALL: Unremarkable. No fracture or destructive lesion OTHER FINDINGS: Unremarkable. IMPRESSION: No evidence of pulmonary embolism. Multifocal interstitial/alveolar opacities common nonspecific. This may be infectious or inflammatory.
[2017-06-16] MEDS: Albuterol-Ipratrop 3 mg / 0.5 (3 ml) UD INH SCH ×7 (00:33→23:58)
[2017-06-16 07:38] LABS: BASO % 0.1 % (0.0-2.0); EOS % 0.2 % (0.0-4.0); HEMOGLOBIN 11.5 g/dL (12.0-18.0); LYMPH # 1.5 K/uL (1.0-4.3); LYMPH % 9.6 % (20.0-40.0); MEAN CELL VOLUME 95.8 fL (80.0-94.0); MEAN CORPUSCULAR HEMOGLOBIN 32.1 pg (27.0-31.0); MEAN CORPUSCULAR HGB CONC 33.5 g/dL (33.0-37.0); MEAN PLATELET VOLUME 8.8 fL (7.2-11.7); MONO # 1.3 K/uL (0.0-0.8); MONO % 8.4 % (0.0-10.0); NEUT # 12.4 K/uL (1.8-7.0); NEUT % 81.7 % (50.0-75.0); PLATELET COUNT 234 K/uL (130-400); RBC 3.59 Mil/uL (4.40-5.90); RED CELL DISTRIBUTION WIDTH 13.2 % (11.5-14.5); WHITE BLOOD COUNT 15.2 K/uL (4.8-10.8)
[2017-06-16 07:53] LABS: ALB/GLOB RATIO 1.2 (1.0-2.1); ALBUMIN 3.2 g/dL (3.5-5.0); ALT/SGPT 24 U/L (21-72); AST/SGOT 16 U/L (17-59); BLOOD UREA NITROGEN 20 mg/dL (9-20); CALCIUM 8.6 mg/dl (8.6-10.4); GFR AFRICAN-AMERICAN > 60; GFR NON-AFRICAN AMERICAN > 60
[2017-06-16] MEDS: Enoxaparin 40 mg Syringe SC SCH (09:28)
[2017-06-16] MEDS: MethylPREDNISolone 40 mg Vial IVP SCH (09:29)
[2017-06-16] MEDS: Saccharomyces Boulardi 250 mg Cap PO SCH ×2 (09:31→18:12)
[2017-06-16] MEDS: Pantoprazole 40 mg EC Tab PO SCH (09:31)
[2017-06-16] MEDS: guaiFENesin 600 mg ER Tab PO SCH ×2 (09:31→17:32)
[2017-06-16 09:39] LABS: EOSINOPHIL 1 % (0-4); LYMPHOCYTE 10 % (20-40); MONOCYTE 6 % (0-10); MYELOCYTE 1 % (0-0); NEUTROPHIL 82 % (50-75); PLATELET ESTIMATE NORMAL (NORMAL); TOTAL CELLS COUNTED 100
[2017-06-16 09:40] LABS: HYPOCHROMIC SLIGHT
[2017-06-16] MEDS ORDERED: cefTRIAXone IV 1 gm in Dextros 50 ML IVPB SCH (10:00)
[2017-06-16] MEDS: Azithromycin 500 MG in Sodium Chloride 0.9% 250 ML IVPB SCH (10:16)
--- NOTE | 2017-06-16 10:48 | CP.PCM.PN ---
<Luz Conner - Last Filed: 06/16/17 12:49> Subjective - Date & Time of Evaluation Date of Evaluation: 06/16/17 Time of Evaluation: 07:00 - Subjective Subjective: PGY1- Medicine Note Patient is seen and examined at bedside in no acute distress. Patient says he just doesn't feel well and was sweating all night. Patient says he is still coughing up green sputum. Patient also says he hasn't had a bowel movement since Wednesday. Patient denies any nausea, vomiting, chest pain, or abdominal pain. Objective - Vital Signs/Intake and Output Vital Signs (last 24 hours): Temp Pulse Resp BP Pulse Ox 98.7 F 67 18 154/80 H 98 06/16/17 08:45 06/16/17 08:45 06/16/17 08:45 06/16/17 08:45 06/16/17 08:45 Intake and Output: 06/16/17 06/16/17 06:59 18:59 Intake Total 1280 Balance 1280 - Medications Medications: Current Medications Acetaminophen (Tylenol 325mg Tab) 650 mg PO Q6 PRN PRN Reason: Fever >100.4 F Albuterol Sulfate (Albuterol 0.083% Inhal Julia (2.5 Mg/3 Ml) Ud) 3 mg INH RQ2 PRN PRN Reason: Shortness of Breath Albuterol/Ipratropium (Duoneb 3 Mg/0.5 Mg (3 Ml) Ud) 3 ml INH RQ4 [facility] Last Admin: 06/16/17 07:10 Dose: 3 ml Amlodipine Besylate (Norvasc) 10 mg PO DAILY [facility] Last Admin: 06/16/17 09:32 Dose: Not Given Enoxaparin Sodium (Lovenox) 40 mg SC DAILY [facility] Last Admin: 06/16/17 09:28 Dose: Not Given Guaifenesin (Mucinex La) 600 mg PO BID [facility] Last Admin: 06/16/17 09:31 Dose: 600 mg Azithromycin 500 mg/ Sodium (Chloride) 250 mls @ 250 mls/hr IVPB DAILY [facility] PRN Reason: Protocol Last Admin: 06/16/17 10:16 Dose: 250 mls/hr Ceftriaxone Sodium (Rocephin Iv 1 Gm Duplex) 50 mls @ 100 mls/hr IVPB DAILY [facility] PRN Reason: Protocol Last Admin: 06/16/17 09:18 Dose: 100 mls/hr Methylprednisolone (Solu-Medrol) 40 mg IVP DAILY [facility] Last Admin: 06/16/17 09:29 Dose: 40 mg Pantoprazole Sodium (Protonix Ec Tab) 40 mg PO DAILY [facility] Last Admin: 06/16/17 09:31 Dose: 40 mg Saccharomyces Boulardii (Florastor) 250 mg PO BID [facility] Last Admin: 06/16/17 09:31 Dose: 250 mg - Labs Labs: 06/16/17 07:28 06/16/17 07:28 - Additional Findings Additional findings: - Constitutional Appears: Non-toxic, No Acute Distress - Head Exam Head Exam: ATRAUMATIC, NORMAL INSPECTION, NORMOCEPHALIC - Eye Exam Eye Exam: EOMI, Normal appearance Pupil Exam: NORMAL ACCOMODATION - ENT Exam ENT Exam: Mucous Membranes Moist - Respiratory Exam Respiratory Exam: Decreased Breath Sounds, NORMAL BREATHING PATTERN. absent: rhonchi, wheezes, rales - Cardiovascular Exam Cardiovascular Exam: REGULAR RHYTHM, RRR, +S1, +S2 - GI/Abdominal Exam GI & Abdominal Exam: Soft, Normal Bowel Sounds. absent: Tenderness - Extremities Exam Extremities Exam: Full ROM, Normal Inspection. absent: Pedal Edema - Back Exam Back Exam: NORMAL INSPECTION. absent: paraspinal tenderness - Neurological Exam Neurological Exam: Alert, Awake, Oriented x3 - Psychiatric Exam Psychiatric exam: Normal Affect, Normal Mood - Skin Skin Exam: Intact, Normal Color, Warm Assessment and Plan - Assessment and Plan (Free Text) Assessment: Pnuemonia - Admit to tele. -Cxray: prominent consolidative opacification seen within the right mid to lower lung zone as well as the left mid to lower lung zone. More dense focal masslike consolidation at the lateral aspect of the right mid lung zone. Tortuous ectatic aorta. Mild cardiomegaly. - Pt will be placed on nasal cannula or BiPAP as needed for respiratory support. - lactic acid: 1 and procal: .32 - Blood culture neg x 24 hours -sputum cultures: few gram neg rods -negative legionella, mycoplasma -negative flu -Pulm consulted, Dr. Salguero, help appreciated Meds: - Continue Zithromax 500mg po daily, stop Rocephin (06/16) switch to Cefapime 1gm q12h - continue solumedrol 40 mg IVP QD - Duonebs q6 tiera, Q3 prn - Robitussin DM po q4h PRN Elevated D-Dimer -D-Dimer 495 -CTA: No evidence of pulmonary embolism. Multifocal interstitial/ alveolar opacities common nonspecific. This may infectious or inflammatory. HTN - increased Norvasc to 10mg daily (from 5mg) Hematuria -UA: 3+ blood, 15 RBC -renal/bladder ultrasound: unremarkable -no gross hematuria Prophylaxis - Protonix - SCDs - Lovenox - Florastor BID <Adela Olivia V - Last Filed: 06/16/17 17:35> Objective - Vital Signs/Intake and Output Vital Signs (last 24 hours): Temp Pulse Resp BP Pulse Ox 97.6 F 63 20 145/83 94 L 06/16/17 16:00 06/16/17 16:00 06/16/17 16:00 06/16/17 16:00 06/16/17 16:00 Intake and Output: 06/16/17 06/16/17 06:59 18:59 Intake Total 1280 400 Balance 1280 400 - Medications Medications: Current Medications Acetaminophen (Tylenol 325mg Tab) 650 mg PO Q6 PRN PRN Reason: Fever >100.4 F Albuterol Sulfate (Albuterol 0.083% Inhal Julia (2.5 Mg/3 Ml) Ud) 3 mg INH RQ2 PRN PRN Reason: Shortness of Breath Albuterol/Ipratropium (Duoneb 3 Mg/0.5 Mg (3 Ml) Ud) 3 ml INH RQ4 [facility] Last Admin: 06/16/17 16:22 Dose: 3 ml Amlodipine Besylate (Norvasc) 10 mg PO DAILY [facility] Last Admin: 06/16/17 09:32 Dose: Not Given Docusate Sodium (Colace) 100 mg PO BID [facility] Last Admin: 06/16/17 11:30 Dose: 100 mg Enoxaparin Sodium (Lovenox) 40 mg SC DAILY [facility] Last Admin: 06/16/17 09:28 Dose: Not Given Guaifenesin (Mucinex La) 600 mg PO BID [facility] Last Admin: 06/16/17 09:31 Dose: 600 mg Guaifenesin/Dextromethorphan (Robitussin Dm) 5 ml PO Q4H PRN PRN Reason: Cough Azithromycin 500 mg/ Sodium (Chloride) 250 mls @ 250 mls/hr IVPB DAILY [facility] PRN Reason: Protocol Last Admin: 06/16/17 10:16 Dose: 250 mls/hr Cefepime HCl 1 gm/ Dextrose 50 mls @ 100 mls/hr IVPB Q12H [facility] PRN Reason: Protocol Last Admin: 06/16/17 14:00 Dose: 100 mls/hr Lactulose (Enulose) 20 gm PO ONCE ONE Stop: 06/16/17 17:30 Methylprednisolone (Solu-Medrol) 40 mg IVP DAILY [facility] Last Admin: 06/16/17 09:29 Dose: 40 mg Pantoprazole Sodium (Protonix Ec Tab) 40 mg PO DAILY [facility] Last Admin: 06/16/17 09:31 Dose: 40 mg Saccharomyces Boulardii (Florastor) 250 mg PO BID [facility] Last Admin: 06/16/17 09:31 Dose: 250 mg - Labs Labs: 06/16/17 07:28 06/16/17 07:28 Attending/Attestation - Attestation I have personally seen and examined this patient.: Yes I have fully participated in the care of the patient.: Yes I have reviewed all pertinent clinical information, including history, physical exam and plan: Yes Notes (Text): Patient seen, examined and case discussed with internist medical doctor md. Patient seen this morning. He reports he feels constipated and has not used the bathroom since Wednesday. We will start stool softeners and monitor for blood movement. Patient reports he does not seen any gross hematuria today. I explained the renal/bladder US results to the patient and that we are awaiting urine culture result. I have also discussed with the patient his CT angio results which ruled out PE but shows multifocal areas concerning for pneumonia. We will continue IV abx. Patient reports he was able to tolerated one round with Physical therapy. I have reminded him again today to continue to stop smoking. Blood pressure elevated this morning; will give Norvasc 10mg and see how blood pressure is during the day. Assessment/Plan 1) Dyspnea Community Acquired Pneumonia * monitor on telemetry * Pulmonary (Dr. Salguero) on consult-->help appreciated * Cxray: prominent consolidative opacification seen within the right mid to lower lung zone as well as the left mid to lower lung zone. More dense focal masslike consolidation at the lateral aspect of the right mid lung zone. Tortuous ectatic aorta. Mild cardiomegaly * Ct angio negative for PE * Pt will be placed on nasal cannula or BiPAP as needed for respiratory support. * Urine Legionella: negative Strep pneumoniae urine, Mycoplasma IgM: negative * Lactic acid: 1 and procal: .32 * Blood and sputum cultures ordered * negative flu * Changed to Cefepime 1 gram IV Q12h * C/w Azithromycin 500mg IVPB daily 2) History of Asthma/COPD * Duoneb 3ml INHRQ4 * Albuterol 3ml INH RQ2H PRN shortness of breathe * Solumedrol 40 mg IVP QDdaily * Monitor Pre and post peak flow * Patient varies between nasal canula vs Bipap high 80s low 90s oxygen saturation 3) Tobacco cessation * Patient was counselled but does not want any aids 4) Hypertension * c/w Norvasc 10mg PO daily * Given additional dose of Norvac 5mg today-->will restart at Norvasc 10mg PO daily 5) Hematuria * Noted in UA * Urine culture: no growth * Renal/bladder US: unremarkable 6) Hypokalemia * monitor and replete 7) Prophylaxis * Protonix 40mg IV q daily * SCDs * Lovenox 40mg subqdaily * Florastor 250mg PO BID Disposition: Continue IV abx, nebulizers; planning for possible discharge tomorrow
[2017-06-16] MEDS ORDERED: guaiFENesin DM 100 mg-10 mg/5 ml UD PO PRN (12:48)
--- NOTE | 2017-06-16 19:24 | CARD ---
APPROVED REPORT EKG Measurement Heart [id number] <Conclusion> Sinus rhythm with premature atrial complexes Nonspecific ST and T wave abnormality Prolonged QT Abnormal ECG
[2017-06-17] MEDS: Albuterol-Ipratrop 3 mg / 0.5 (3 ml) UD INH SCH ×5 (03:05→20:44)
[2017-06-17 07:48] LABS: BASO % 0.1 % (0.0-2.0); EOS # 0.1 K/uL (0.0-0.7); HEMOGLOBIN 11.6 g/dL (12.0-18.0); LYMPH # 1.7 K/uL (1.0-4.3); MEAN CELL VOLUME 95.1 fL (80.0-94.0); MEAN CORPUSCULAR HEMOGLOBIN 32.8 pg (27.0-31.0); MEAN CORPUSCULAR HGB CONC 34.5 g/dL (33.0-37.0); MEAN PLATELET VOLUME 8.7 fL (7.2-11.7); MONO # 0.9 K/uL (0.0-0.8); MONO % 9.8 % (0.0-10.0); NEUT # 6.8 K/uL (1.8-7.0); NEUT % 71.1 % (50.0-75.0); NRBC % 0.1 % (0.0-2.0); RBC 3.53 Mil/uL (4.40-5.90); RED CELL DISTRIBUTION WIDTH 13.3 % (11.5-14.5); WHITE BLOOD COUNT 9.6 K/uL (4.8-10.8)
[2017-06-17 07:56] LABS: ALB/GLOB RATIO 1.1 (1.0-2.1); ALBUMIN 3.1 g/dL (3.5-5.0); ALT/SGPT 24 U/L (21-72); AST/SGOT 17 U/L (17-59); BLOOD UREA NITROGEN 18 mg/dL (9-20); CALCIUM 8.3 mg/dl (8.6-10.4); GFR AFRICAN-AMERICAN > 60; GFR NON-AFRICAN AMERICAN > 60
[2017-06-17] MEDS: MethylPREDNISolone 40 mg Vial IVP SCH (09:40)
[2017-06-17] MEDS: Azithromycin 500 MG in Sodium Chloride 0.9% 250 ML IVPB SCH (09:42)
[2017-06-17] MEDS: guaiFENesin 600 mg ER Tab PO SCH ×2 (09:44→17:34)
[2017-06-17] MEDS: Pantoprazole 40 mg EC Tab PO SCH (09:44)
[2017-06-17] MEDS: Saccharomyces Boulardi 250 mg Cap PO SCH ×2 (09:44→17:34)
[2017-06-17] MEDS: Enoxaparin 40 mg Syringe SC SCH (09:45)
[2017-06-17] MEDS ORDERED: Pneumococcal 23-Valent Vaccine IM ONE (10:00)
[2017-06-17] MEDS ORDERED: Potassium Chloride 20 mEq ER Tab PO ONE (10:00)
--- NOTE | 2017-06-17 11:42 | CP.PCM.PN ---
<Luz Conner - Last Filed: 06/17/17 14:34> Subjective - Date & Time of Evaluation Date of Evaluation: 06/17/17 Time of Evaluation: 07:00 - Subjective Subjective: PGY1- Progress Note Patient seen and examined at bedside and in no acute distress. Patient says he is feeling much better and much less short of breath. Patient says his family has had trouble with swelling and Norvasc and would like to try a different medication for his blood pressure. Patient also refuses Heparin injections but says he will walk around more and agrees to scds. Patient admits to cough with yellow/ green phlegm. Patient has occasional nausea from the antibiotics. Patient has had no vomiting. Patient had a normal bowel movement yesterday after being constipated for a few days. Patient denies any headache, dizziness, or chest pain. Objective - Vital Signs/Intake and Output Vital Signs (last 24 hours): Temp Pulse Resp BP Pulse Ox 98.2 F 64 20 161/86 H 95 06/17/17 07:10 06/17/17 07:10 06/17/17 07:10 06/17/17 07:10 06/17/17 07:10 Intake and Output: 06/17/17 06/17/17 06:59 18:59 Intake Total 820 Balance 820 - Medications Medications: Current Medications Acetaminophen (Tylenol 325mg Tab) 650 mg PO Q6 PRN PRN Reason: Fever >100.4 F Albuterol Sulfate (Albuterol 0.083% Inhal Julia (2.5 Mg/3 Ml) Ud) 3 mg INH RQ2 PRN PRN Reason: Shortness of Breath Albuterol/Ipratropium (Duoneb 3 Mg/0.5 Mg (3 Ml) Ud) 3 ml INH RQ4 [facility] Last Admin: 06/17/17 03:05 Dose: Not Given Amlodipine Besylate (Norvasc) 10 mg PO DAILY [facility] Last Admin: 06/17/17 09:44 Dose: 10 mg Docusate Sodium (Colace) 100 mg PO BID [facility] Last Admin: 06/17/17 09:44 Dose: 100 mg Enoxaparin Sodium (Lovenox) 40 mg SC DAILY [facility] Last Admin: 06/17/17 09:45 Dose: Not Given Guaifenesin (Mucinex La) 600 mg PO BID [facility] Last Admin: 06/17/17 09:44 Dose: 600 mg Guaifenesin/Dextromethorphan (Robitussin Dm) 5 ml PO Q4H PRN PRN Reason: Cough Azithromycin 500 mg/ Sodium (Chloride) 250 mls @ 250 mls/hr IVPB DAILY [facility] PRN Reason: Protocol Last Admin: 06/17/17 09:42 Dose: 250 mls/hr Cefepime HCl 1 gm/ Dextrose 50 mls @ 100 mls/hr IVPB Q12H [facility] PRN Reason: Protocol Last Admin: 06/17/17 00:00 Dose: 100 mls/hr Methylprednisolone (Solu-Medrol) 40 mg IVP DAILY [facility] Last Admin: 06/17/17 09:40 Dose: 40 mg Ondansetron HCl (Zofran Odt) 4 mg PO Q6H PRN PRN Reason: Nausea/Vomiting Pantoprazole Sodium (Protonix Ec Tab) 40 mg PO DAILY [facility] Last Admin: 06/17/17 09:44 Dose: 40 mg Saccharomyces Boulardii (Florastor) 250 mg PO BID [facility] Last Admin: 06/17/17 09:44 Dose: 250 mg Tiotropium [place] (Spiriva) 18 mcg INH RQ24 [facility] Tiotropium [place] (Spiriva Inhalation Handihaler Device) 1 inhaler INH ONCE ONE Stop: 06/17/17 11:31 - Labs Labs: 06/17/17 07:24 06/17/17 07:24 - Constitutional Appears: Non-toxic, No Acute Distress - Head Exam Head Exam: ATRAUMATIC, NORMAL INSPECTION, NORMOCEPHALIC - Eye Exam Eye Exam: EOMI, Normal appearance, PERRL - ENT Exam ENT Exam: Mucous Membranes Moist - Neck Exam Neck Exam: Full ROM - Respiratory Exam Respiratory Exam: Clear to Ausculation Bilateral, NORMAL BREATHING PATTERN - Cardiovascular Exam Cardiovascular Exam: REGULAR RHYTHM, RRR, +S1, +S2 - GI/Abdominal Exam GI & Abdominal Exam: Soft, Normal Bowel Sounds. absent: Tenderness - Extremities Exam Extremities Exam: Normal Inspection. absent: Pedal Edema - Back Exam Back Exam: NORMAL INSPECTION - Neurological Exam Neurological Exam: Alert, Awake, Oriented x3 - Psychiatric Exam Psychiatric exam: Normal Affect, Normal Mood - Skin Skin Exam: Intact, Normal Color, Warm Assessment and Plan - Assessment and Plan (Free Text) Assessment: Pnuemonia - Admit to tele. -Cxray: prominent consolidative opacification seen within the right mid to lower lung zone as well as the left mid to lower lung zone. More dense focal masslike consolidation at the lateral aspect of the right mid lung zone. Tortuous ectatic aorta. Mild cardiomegaly. - Pt will be placed on nasal cannula or BiPAP as needed for respiratory support. - lactic acid: 1 and procal: .32 - Blood culture neg x 24 hours -sputum cultures: few gram neg rods -negative legionella, mycoplasma -negative flu -Pulm consulted, Dr. Salguero, help appreciated -repeat cxray -f/u PTs Meds: - Continue Zithromax 500mg po daily, stop Rocephin (06/16) switch to Cefapime 1gm q12h - continue solumedrol 40 mg IVP QD - Duonebs q6 tiera, Q3 prn - Robitussin DM po q4h PRN -Spiriva daily Elevated D-Dimer -D-Dimer 495 -CTA: No evidence of pulmonary embolism. Multifocal interstitial/ alveolar opacities common nonspecific. This may infectious or inflammatory. HTN - switched Norvasc to Lisinopril 5mg po daily Hematuria -UA: 3+ blood, 15 RBC -renal/bladder ultrasound: unremarkable -no gross hematuria -urine culture negative -patient will need to see urology as an outpatient Prophylaxis - Protonix - SCDs - patient refusing Lovenox, encouraged to ambulate more - Florastor BID <Adela Olivia V - Last Filed: 06/18/17 09:54> Objective - Vital Signs/Intake and Output Vital Signs (last 24 hours): Temp Pulse Resp BP Pulse Ox 97.9 F 60 20 140/80 96 06/18/17 07:00 06/18/17 07:00 06/18/17 07:00 06/18/17 07:00 06/18/17 07:00 - Medications Medications: Current Medications Acetaminophen (Tylenol 325mg Tab) 650 mg PO Q6 PRN PRN Reason: Fever >100.4 F Albuterol Sulfate (Albuterol 0.083% Inhal Julia (2.5 Mg/3 Ml) Ud) 3 mg INH RQ2 PRN PRN Reason: Shortness of Breath Albuterol/Ipratropium (Duoneb 3 Mg/0.5 Mg (3 Ml) Ud) 3 ml INH RQ4 [facility] Last Admin: 06/18/17 07:17 Dose: 3 ml Docusate Sodium (Colace) 100 mg PO BID [facility] Last Admin: 06/17/17 17:34 Dose: 100 mg Enoxaparin Sodium (Lovenox) 40 mg SC DAILY [facility] Last Admin: 06/17/17 09:45 Dose: Not Given Guaifenesin (Mucinex La) 600 mg PO BID [facility] Last Admin: 06/17/17 17:34 Dose: 600 mg Guaifenesin/Dextromethorphan (Robitussin Dm) 5 ml PO Q4H PRN PRN Reason: Cough Azithromycin 500 mg/ Sodium (Chloride) 250 mls @ 250 mls/hr IVPB DAILY [facility] PRN Reason: Protocol Last Admin: 06/17/17 09:42 Dose: 250 mls/hr Cefepime HCl 1 gm/ Dextrose 50 mls @ 100 mls/hr IVPB Q12H [facility] PRN Reason: Protocol Last Admin: 06/18/17 01:47 Dose: 100 mls/hr Lisinopril (Zestril) 10 mg PO DAILY [facility] Methylprednisolone (Solu-Medrol) 40 mg IVP DAILY [facility] Last Admin: 06/17/17 09:40 Dose: 40 mg Ondansetron HCl (Zofran Odt) 4 mg PO Q6H PRN PRN Reason: Nausea/Vomiting Pantoprazole Sodium (Protonix Ec Tab) 40 mg PO DAILY [facility] Last Admin: 06/17/17 09:44 Dose: 40 mg Saccharomyces Boulardii (Florastor) 250 mg PO BID [facility] Last Admin: 06/17/17 17:34 Dose: 250 mg Tiotropium [place] (Spiriva) 18 mcg INH RQ24 [facility] - Labs Labs: 06/18/17 07:39 06/18/17 07:39 Attending/Attestation - Attestation I have personally seen and examined this patient.: Yes I have fully participated in the care of the patient.: Yes I have reviewed all pertinent clinical information, including history, physical exam and plan: Yes Notes (Text): This is late computer entry for 06/17/17. Patient seen, examined and case discussed with medical office representative and seen with pulmonary at bedside. Patient reports he is feeling better. Breathing better. Patient reports he does not want to take Norvasc because he is worried about side effects. patient reports family hx of swelling in the legs. He himself does not have this side effect. I advised him we can discontinue this medication and try something else which he was amenable to doing. we have switched him to Lisinopril. Pulmonary noted improvement in lung exam; recommended pulmonary function tests since improvement and to add on Spiriva. We will f/u with physical therapy today to see how his shortness of breathe improves on ambulation. We have reiterated again the deleterious effects of smoking on the body which he is aware of. Discharge planning possible for tomorrow. Assessment/Plan 1) Dyspnea Community Acquired Pneumonia * monitor on telemetry * Pulmonary (Dr. Salguero) on consult-->help appreciated * Cxray: prominent consolidative opacification seen within the right mid to lower lung zone as well as the left mid to lower lung zone. More dense focal masslike consolidation at the lateral aspect of the right mid lung zone. Tortuous ectatic aorta. Mild cardiomegaly * Ct angio negative for PE * Pt will be placed on nasal cannula or BiPAP as needed for respiratory support. * Urine Legionella: negative Strep pneumoniae urine, Mycoplasma IgM: negative * Lactic acid: 1 and procal: .32 * Blood cultures negative * Sputum culture negative * negative flu * c/w Cefepime 1 gram IV Q12h * C/w Azithromycin 500mg IVPB daily * Add Spiriva and f/u physical therapy 2) History of Asthma/COPD * Duoneb 3ml INHRQ4 * Albuterol 3ml INH RQ2H PRN shortness of breathe * Solumedrol 40 mg IVP QDdaily * Monitor Pre and post peak flow * Patient varies between nasal canula vs Bipap high 80s low 90s oxygen saturation * f/u physical therapy * start Spiriva 18mcg inhaled portillo 3) Tobacco cessation * Patient was counselled but does not want any aids 4) Uncontrolled Hypertension * d/c Norvasc secondary to patient request for concerns over side effect of swelling * Will start Lisinopril 5mg PO daily and adjust accordingly 5) Hematuria * Noted in UA * Urine culture: no growth * Renal/bladder US: unremarkable * Will need to f/u urology for further workup as outpatient 6) Hypokalemia * monitor and replete 7) Prophylaxis * Protonix 40mg IV q daily * SCDs * Lovenox 40mg subqdaily * Florastor 250mg PO BID Disposition: Continue IV abx, nebulizers; order for pulmonary function tests, and f/u physical therapy; planning for possible discharge tomorrow
--- NOTE | 2017-06-17 12:46 | RAD ---
HISTORY: pneumonia COMPARISON: Chest radiograph dated 06/14/2017 FINDINGS: LUNGS: Improved right mid lung aeration. Persistent multifocal opacities, most confluent at both lung bases. PLEURA: No significant pleural effusion identified, no pneumothorax apparent. CARDIOVASCULAR: Cardiomediastinal silhouette unchanged. OSSEOUS STRUCTURES: Unchanged. VISUALIZED UPPER ABDOMEN: Normal. OTHER FINDINGS: None. IMPRESSION: Improved right mid lung aeration. Persistent multifocal opacities, most confluent at both lung bases.
--- NOTE | 2017-06-17 16:46 | CP.PCM.PN ---
Subjective - Date & Time of Evaluation Date of Evaluation: 06/17/17 Time of Evaluation: 09:40 - Subjective Subjective: patient seen and examined Patient states cough and shortness of breath much improved Afebrile Being treated for pneumonia recommended pulmonary function test Continue IV antibiotics Steroids and nebulizer treatment Objective - Vital Signs/Intake and Output Vital Signs (last 24 hours): Temp Pulse Resp BP Pulse Ox 98.2 F 64 20 161/86 H 95 06/17/17 07:10 06/17/17 07:10 06/17/17 07:10 06/17/17 07:10 06/17/17 07:10 Intake and Output: 06/17/17 06/17/17 06:59 18:59 Intake Total 820 Balance 820 - Medications Medications: Current Medications Acetaminophen (Tylenol 325mg Tab) 650 mg PO Q6 PRN PRN Reason: Fever >100.4 F Albuterol Sulfate (Albuterol 0.083% Inhal Julia (2.5 Mg/3 Ml) Ud) 3 mg INH RQ2 PRN PRN Reason: Shortness of Breath Albuterol/Ipratropium (Duoneb 3 Mg/0.5 Mg (3 Ml) Ud) 3 ml INH RQ4 [facility] Last Admin: 06/17/17 16:03 Dose: 3 ml Docusate Sodium (Colace) 100 mg PO BID [facility] Last Admin: 06/17/17 09:44 Dose: 100 mg Enoxaparin Sodium (Lovenox) 40 mg SC DAILY [facility] Last Admin: 06/17/17 09:45 Dose: Not Given Guaifenesin (Mucinex La) 600 mg PO BID [facility] Last Admin: 06/17/17 09:44 Dose: 600 mg Guaifenesin/Dextromethorphan (Robitussin Dm) 5 ml PO Q4H PRN PRN Reason: Cough Azithromycin 500 mg/ Sodium (Chloride) 250 mls @ 250 mls/hr IVPB DAILY [facility] PRN Reason: Protocol Last Admin: 06/17/17 09:42 Dose: 250 mls/hr Cefepime HCl 1 gm/ Dextrose 50 mls @ 100 mls/hr IVPB Q12H [facility] PRN Reason: Protocol Last Admin: 06/17/17 12:05 Dose: 100 mls/hr Lisinopril (Zestril) 5 mg PO DAILY [facility] Last Admin: 06/17/17 14:19 Dose: 5 mg Methylprednisolone (Solu-Medrol) 40 mg IVP DAILY [facility] Last Admin: 06/17/17 09:40 Dose: 40 mg Ondansetron HCl (Zofran Odt) 4 mg PO Q6H PRN PRN Reason: Nausea/Vomiting Pantoprazole Sodium (Protonix Ec Tab) 40 mg PO DAILY [facility] Last Admin: 06/17/17 09:44 Dose: 40 mg Saccharomyces Boulardii (Florastor) 250 mg PO BID [facility] Last Admin: 06/17/17 09:44 Dose: 250 mg Tiotropium [place] (Spiriva) 18 mcg INH RQ24 [facility] - Labs Labs: 06/17/17 07:24 06/17/17 07:24
[2017-06-17 23:59] VITALS: RESP 20
[2017-06-18] MEDS: Albuterol-Ipratrop 3 mg / 0.5 (3 ml) UD INH SCH ×4 (00:32→13:00)
[2017-06-18 07:49] LABS: BASO % 0.3 % (0.0-2.0); EOS # 0.2 K/uL (0.0-0.7); EOS % 1.4 % (0.0-4.0); HEMOGLOBIN 12.7 g/dL (12.0-18.0); LYMPH # 1.8 K/uL (1.0-4.3); LYMPH % 16.5 % (20.0-40.0); MEAN CELL VOLUME 94.8 fL (80.0-94.0); MEAN CORPUSCULAR HEMOGLOBIN 31.8 pg (27.0-31.0); MEAN CORPUSCULAR HGB CONC 33.5 g/dL (33.0-37.0); MEAN PLATELET VOLUME 8.4 fL (7.2-11.7); MONO # 1.1 K/uL (0.0-0.8); MONO % 9.8 % (0.0-10.0); NRBC % 0.1 % (0.0-2.0); RBC 3.98 Mil/uL (4.40-5.90); RED CELL DISTRIBUTION WIDTH 13.4 % (11.5-14.5); WHITE BLOOD COUNT 11.1 K/uL (4.8-10.8)
[2017-06-18] MEDS ORDERED: Tiotropium 18 mcg Cap For Inhalation INH SCH (08:00)
[2017-06-18 08:07] LABS: ALB/GLOB RATIO 1.2 (1.0-2.1); ALBUMIN 3.5 g/dL (3.5-5.0); ALT/SGPT 25 U/L (21-72); AST/SGOT 15 U/L (17-59); BLOOD UREA NITROGEN 16 mg/dL (9-20); CALCIUM 8.6 mg/dl (8.6-10.4); GFR AFRICAN-AMERICAN > 60; GFR NON-AFRICAN AMERICAN > 60
[2017-06-18] MEDS: Pantoprazole 40 mg EC Tab PO SCH (10:38)
[2017-06-18] MEDS: guaiFENesin 600 mg ER Tab PO SCH (10:38)
[2017-06-18] MEDS: Saccharomyces Boulardi 250 mg Cap PO SCH (10:38)
[2017-06-18] MEDS: Enoxaparin 40 mg Syringe SC SCH (10:39)
[2017-06-18] MEDS: MethylPREDNISolone 40 mg Vial IVP SCH (10:39)
[2017-06-18] MEDS: Azithromycin 500 MG in Sodium Chloride 0.9% 250 ML IVPB SCH (10:39)
[2017-06-18 16:49] VITALS: PULSE 69; TEMP 97.7; O2SAT 92
[2017-06-18 16:52] VITALS: BP 162/69
--- NOTE | 2017-06-18 18:20 | CP.PCM.DIS ---
<Luz Conner - Last Filed: 06/18/17 18:15> Provider - Provider Date of Admission: 06/15/17 00:48 Attending physician: Adela Olivia DO Consults: Dr. Salguero (pulm) Time Spent in preparation of Discharge (in minutes): 40 Diagnosis - Discharge Diagnosis (1) Pneumonia Status: Acute Comment: resolving (2) COPD (chronic obstructive pulmonary disease) Status: Chronic (3) Asthma Status: Chronic (4) Hypertension Status: Chronic (5) Hematuria Status: Chronic Hospital Course - Lab Results Lab Results: Micro Results 06/14/17 23:00 Blood Blood Culture - Preliminary NO GROWTH AFTER 3 DAYS 06/14/17 23:40 Blood Blood Culture - Preliminary NO GROWTH AFTER 3 DAYS 06/15/17 12:30 Sputum Gram Stain - Final 06/15/17 12:30 Sputum Sputum Culture - Final NORMAL ORAL MIMA 06/15/17 12:30 Urine Urine Culture - Final No Growth (<1,000 CFU/ML) Most Recent Lab Values WBC 11.1 K/uL (4.8-10.8) H 06/18/17 07:39 RBC 3.98 Mil/uL (4.40-5.90) L 06/18/17 07:39 Hgb 12.7 g/dL (12.0-18.0) 06/18/17 07:39 Hct 37.8 % (35.0-51.0) 06/18/17 07:39 MCV 94.8 fL (80.0-94.0) H 06/18/17 07:39 MCH 31.8 pg (27.0-31.0) H 06/18/17 07:39 MCHC 33.5 g/dL (33.0-37.0) 06/18/17 07:39 RDW 13.4 % (11.5-14.5) 06/18/17 07:39 Plt Count 308 K/uL (130-400) 06/18/17 07:39 MPV 8.4 fL (7.2-11.7) 06/18/17 07:39 Neut % (Auto) 72.0 % (50.0-75.0) 06/18/17 07:39 Lymph % (Auto) 16.5 % (20.0-40.0) L 06/18/17 07:39 [place] % (Auto) 9.8 % (0.0-10.0) 06/18/17 07:39 Eos % (Auto) 1.4 % (0.0-4.0) 06/18/17 07:39 Baso % (Auto) 0.3 % (0.0-2.0) 06/18/17 07:39 Neut # (Auto) 8.0 K/uL (1.8-7.0) H 06/18/17 07:39 Lymph # (Auto) 1.8 K/uL (1.0-4.3) 06/18/17 07:39 [place] # (Auto) 1.1 K/uL (0.0-0.8) H 06/18/17 07:39 Eos # (Auto) 0.2 K/uL (0.0-0.7) 06/18/17 07:39 Baso # (Auto) 0.0 K/uL (0.0-0.2) 06/18/17 07:39 Neutrophils % (Manual) 82 % (50-75) H 06/16/17 07:28 Band Neutrophils % 1 % (0-2) 06/15/17 11:24 Lymphocytes % (Manual) 10 % (20-40) L 06/16/17 07:28 Monocytes % (Manual) 6 % (0-10) 06/16/17 07:28 Eosinophils % (Manual) 1 % (0-4) 06/16/17 07:28 Myelocytes % 1 % (0-0) H 06/16/17 07:28 Platelet Estimate Normal (NORMAL) 06/16/17 07:28 Hypochromasia (manual) Slight 06/16/17 07:28 D-Dimer, Quantitative 495 ng/mlDDU (0-243) H 06/15/17 15:29 Puncture Site Rr 06/14/17 23:40 pCO2 35 mm/Hg (35-45) 06/14/17 23:40 pO2 62 mm/Hg (80-100) L 06/14/17 23:40 HCO3 28.0 mmol/L (21-28) 06/14/17 23:40 ABG pH 7.50 (7.35-7.45) H 06/14/17 23:40 ABG Total CO2 28.4 mmol/L (22-28) H 06/14/17 23:40 ABG O2 Saturation 91.3 % (95-98) L 06/14/17 23:40 ABG Base Excess 4.2 mmol/L (-2.0-3.0) H 06/14/17 23:40 ABG Hemoglobin 12.6 g/dL (11.7-17.4) 06/14/17 23:40 ABG Carboxyhemoglobin 3.0 % (0.5-1.5) H 06/14/17 23:40 POC ABG HHb (Measured) 8.3 % (0.0-5.0) H 06/14/17 23:40 ABG Methemoglobin 1.5 % (0.0-3.0) 06/14/17 23:40 Thang Test Pos 06/14/17 23:40 Hgb O2 Saturation 87.2 % (95.0-98.0) L 06/14/17 23:40 Liter Flow 7.0 06/14/17 23:40 Sodium 138 mmol/L (132-148) 06/18/17 07:39 Potassium 3.8 mmol/L (3.6-5.2) 06/18/17 07:39 Chloride 100 mmol/L (98-107) 06/18/17 07:39 Carbon Dioxide 28 mmol/L (22-30) 06/18/17 07:39 Anion Gap 13 (10-20) 06/18/17 07:39 BUN 16 mg/dL (9-20) 06/18/17 07:39 Creatinine 0.9 mg/dL (0.8-1.5) 06/18/17 07:39 Est GFR ( Amer) > 60 06/18/17 07:39 Est GFR (Non-Af Amer) > 60 06/18/17 07:39 Random Glucose 99 mg/dL (75-110) 06/18/17 07:39 Lactic Acid 1.0 mmol/L (0.7-2.1) 06/15/17 02:14 Calcium 8.6 mg/dl (8.6-10.4) 06/18/17 07:39 Magnesium 2.2 mg/dL (1.6-2.3) 06/17/17 07:24 Total Bilirubin 0.6 mg/dL (0.2-1.3) 06/18/17 07:39 AST 15 U/L (17-59) L 06/18/17 07:39 ALT 25 U/L (21-72) 06/18/17 07:39 Alkaline Phosphatase 70 U/L (38-126) 06/18/17 07:39 NT-Pro-B Natriuret Pep 497 pg/mL (0-900) 06/14/17 11:38 Total Protein 6.4 g/dL (6.3-8.3) 06/18/17 07:39 Albumin 3.5 g/dL (3.5-5.0) 06/18/17 07:39 Globulin 2.9 gm/dL (2.2-3.9) 06/18/17 07:39 Albumin/Globulin Ratio 1.2 (1.0-2.1) 06/18/17 07:39 Procalcitonin 0.32 NG/ML (0.19-0.49) 06/15/17 02:12 Urine Color Yellow (YELLOW) 06/14/17 11:38 Urine Clarity Clear (Clear) 06/14/17 11:38 Urine pH 5.0 (5.0-8.0) 06/14/17 11:38 Ur Specific [place] 1.018 (1.003-1.030) 06/14/17 11:38 Urine Protein 1+ mg/dL (NEGATIVE) H 06/14/17 11:38 Urine Glucose (UA) Normal mg/dL (Normal) 06/14/17 11:38 Urine Ketones Negative mg/dL (NEGATIVE) 06/14/17 11:38 Urine Blood 3+ (NEGATIVE) H 06/14/17 11:38 Urine Nitrate Negative (NEGATIVE) 06/14/17 11:38 Urine Bilirubin Negative (NEGATIVE) 06/14/17 11:38 Urine Urobilinogen 4.0 mg/dL (0.2-1.0) 06/14/17 11:38 Ur Leukocyte Esterase Neg Rito/uL (Negative) 06/14/17 11:38 Urine WBC (Auto) 1 /hpf (0-5) 06/14/17 11:38 Urine RBC (Auto) 15 /hpf (0-3) H 06/14/17 11:38 Ur Squamous Epith Cells < 1 /hpf (0-5) 06/14/17 11:38 Influenza Typ A,B (EIA) Negative for flu a/b (NEGATIVE) 06/14/17 11:38 Ur L.pneumophila Ag Negative (NEGATIVE) 06/15/17 14:09 Mycoplasma pneumon IgM Negative (NEGATIVE) 06/15/17 02:12 - Hospital Course Hospital Course: H&P: "57 year old male with past medical history of HTN and COPD presented to hospital for shortness of breath, cough x 1 week. Patient states that for past week he had a productive cough with greenish sputum. Patient was seen at [facility] ED for similar symptoms 1 week ago and at that time was told that symptoms likely due to asthma exacerbation. he was discharged from ED with inhaler and prednisone. Patient states his symptoms did not improve with the steroids and he was unsure how to use the inhaler. For one week, patient also complains of chest congestion, shortness of breath, rhinorrhea, sinus congestion and right ear pressure. patient has been using Nyquill and Dayquill at home for symptoms with mild relief. In the ED, patient is noted to have oxygen saturation of 89% on 4 L O2 NC after duoneb tx. and solumedrol. Patient does complain of shortness of breath. Denies having any CP, abdominal pain, N/V /D/C, dizziness." The patient was admitted for pneumonia and initial Chest XRay on 06/14 showed Prominent consolidative opacification seen within the right mid to lower lung zones as well as the leftmid to lower lung zones, dense focal masslike consolidation at the lateral aspect of the right mid lung zone, and tortuous aorta and mild cardiomegaly. PT initially had green/yellow. Dr. Salguero from Pulmonology was consulted. Pt was placed on a nasal cannula for respiratory support. Blood and sputum cultures were ordered. Pt was started Zithromax 500mg po daily, Rocephin, Solumedrol 40mg IVP QD, Duonebs Q6, Robitussin DM PO Q4 PRN , and Duonebs. Blood Cultures negative x24 and sputum cultures showed few gram negative rods. Patient negative for legionella, mycoplasma, and flu. Follow up Chest XRay on 06/17 showed Improved aeration, persistent multifocal opacities, most confluent at both lung bases. Rocephin was stopped on 06/16 and switched to Cefapime 1gm q12h. Pt had PFTs done which showed obstructive lung disease. Patient was explained importance of Spiriva and Advair use daily and given a prescription. Pt sputum became clear yellowish. Pt cough has improved. The pt was found to have an elevated D-Dimer at 495. A Chest CTA on 06/15 showed no evidence of pulmonary embolism, multifocal interstitial/alveolar opacities common nonspecific, which may be infectious or inflammatory. Pt was found to have uncontrolled HTN, for which he was initially was started on Norvasc but refused to take it. Pt was switched to Lisinopril 06/17. BP has improved over the course of stay. For the Hematuria initially had UA that showed +3 blood, 15RBC. Renal/Bladder Ultrasound was found to be unremarkable. A urine culture was done and found to be negative. There was no gross hematuria. Pt was advised on seeing a urologist as an outpatient. In regards to prophylaxis, Pt refused Lovenox. He was encouraged to ambulate and has been working with Physical Therapy for ambulation. Pt was given Protonix 40 mg PO QD, Florastor 250 mg PO BID SUSANNE, This is a summary of the patient's hospital course, please see chart for full details. Discharge Exam - Additional Findings Additional findings: - Constitutional Appears: Non-toxic, No Acute Distress - Head Exam Head Exam: ATRAUMATIC, NORMAL INSPECTION, NORMOCEPHALIC - Eye Exam Eye Exam: EOMI, Normal appearance, PERRL - ENT Exam ENT Exam: Mucous Membranes Moist - Neck Exam Neck Exam: Full ROM - Respiratory Exam Respiratory Exam: Clear to Ausculation Bilateral, NORMAL BREATHING PATTERN - Cardiovascular Exam Cardiovascular Exam: REGULAR RHYTHM, RRR, +S1, +S2 - GI/Abdominal Exam GI & Abdominal Exam: Soft, Normal Bowel Sounds. absent: Tenderness - Extremities Exam Extremities Exam: Normal Inspection. absent: Pedal Edema - Back Exam Back Exam: NORMAL INSPECTION - Neurological Exam Neurological Exam: Alert, Awake, Oriented x3 - Psychiatric Exam Psychiatric exam: Normal Affect, Normal Mood - Skin Skin Exam: Intact, Normal Color, Warm Discharge Plan - Discharge Medications Prescriptions: Albuterol HFA [Ventolin HFA 90 mcg/actuation (8 g)] 2 puff IH [id number] PRN #1 inhaler PRN Reason: Shortness Of Breath Fluticasone Propionate [Flovent Hfa] 0.044 mg IH Q12H #1 inhaler Fluticasone/Salmeterol 250/50 [Advair Diskus] 1 puff IH Q12 #1 dsk Lisinopril [Zestril] 10 mg PO DAILY #30 tab Methylprednisolone [Medrol Dose Pack (21 tabs)] See Taper PO DAILY #21 mg Moxifloxacin [Avelox] 400 mg PO DAILY #5 tab Saccharomyces Boul[place] [Florastor] 250 mg PO BID #60 cap Tiotropium [Spiriva] 18 mcg INH RQ24 #1 cap Tiotropium [place] Inhaler [Spiriva Inhalation Handihaler Device] 1 inhaler INH ONCE #1 inhaler - Follow Up Plan Condition: GOOD Disposition: HOME/ ROUTINE Instructions: Saccharomyces boulardii, Smoking: Not Just Harmful to Your Lungs and Heart, Moxifloxacin (Systemic), Pneumonia, Adult (DC), Quitting Smoking, Albuterol, Fluticasone and Salmeterol, Lisinopril, Methylprednisolone, Tiotropium, Fluticasone (Oral Inhalation) Additional Instructions: Patient stable for discharge as per Dr. Olivia. Patient to take medications as prescribed. Patient to make an appointment with clinic (either at [facility] or [facility]) within 2 weeks. Patient to return to ED if symptoms worsen or persist. Patient explained instructions who agrees and understands. <Adela Olivia V - Last Filed: 06/18/17 20:31> Provider - Provider Date of Admission: 06/15/17 00:48 Attending physician: Adela Olivia, Hospital Course - Lab Results Lab Results: Micro Results 06/14/17 23:00 Blood Blood Culture - Preliminary NO GROWTH AFTER 3 DAYS 06/14/17 23:40 Blood Blood Culture - Preliminary NO GROWTH AFTER 3 DAYS 06/15/17 12:30 Sputum Gram Stain - Final 06/15/17 12:30 Sputum Sputum Culture - Final NORMAL ORAL MIMA 06/15/17 12:30 Urine Urine Culture - Final No Growth (<1,000 CFU/ML) Most Recent Lab Values WBC 11.1 K/uL (4.8-10.8) H 06/18/17 07:39 RBC 3.98 Mil/uL (4.40-5.90) L 06/18/17 07:39 Hgb 12.7 g/dL (12.0-18.0) 06/18/17 07:39 Hct 37.8 % (35.0-51.0) 06/18/17 07:39 MCV 94.8 fL (80.0-94.0) H 06/18/17 07:39 MCH 31.8 pg (27.0-31.0) H 06/18/17 07:39 MCHC 33.5 g/dL (33.0-37.0) 06/18/17 07:39 RDW 13.4 % (11.5-14.5) 06/18/17 07:39 Plt Count 308 K/uL (130-400) 06/18/17 07:39 MPV 8.4 fL (7.2-11.7) 06/18/17 07:39 Neut % (Auto) 72.0 % (50.0-75.0) 06/18/17 07:39 Lymph % (Auto) 16.5 % (20.0-40.0) L 06/18/17 07:39 [place] % (Auto) 9.8 % (0.0-10.0) 06/18/17 07:39 Eos % (Auto) 1.4 % (0.0-4.0) 06/18/17 07:39 Baso % (Auto) 0.3 % (0.0-2.0) 06/18/17 07:39 Neut # (Auto) 8.0 K/uL (1.8-7.0) H 06/18/17 07:39 Lymph # (Auto) 1.8 K/uL (1.0-4.3) 06/18/17 07:39 [place] # (Auto) 1.1 K/uL (0.0-0.8) H 06/18/17 07:39 Eos # (Auto) 0.2 K/uL (0.0-0.7) 06/18/17 07:39 Baso # (Auto) 0.0 K/uL (0.0-0.2) 06/18/17 07:39 Neutrophils % (Manual) 82 % (50-75) H 06/16/17 07:28 Band Neutrophils % 1 % (0-2) 06/15/17 11:24 Lymphocytes % (Manual) 10 % (20-40) L 06/16/17 07:28 Monocytes % (Manual) 6 % (0-10) 06/16/17 07:28 Eosinophils % (Manual) 1 % (0-4) 06/16/17 07:28 Myelocytes % 1 % (0-0) H 06/16/17 07:28 Platelet Estimate Normal (NORMAL) 06/16/17 07:28 Hypochromasia (manual) Slight 06/16/17 07:28 D-Dimer, Quantitative 495 ng/mlDDU (0-243) H 06/15/17 15:29 Puncture Site Rr 06/14/17 23:40 pCO2 35 mm/Hg (35-45) 06/14/17 23:40 pO2 62 mm/Hg (80-100) L 06/14/17 23:40 HCO3 28.0 mmol/L (21-28) 06/14/17 23:40 ABG pH 7.50 (7.35-7.45) H 06/14/17 23:40 ABG Total CO2 28.4 mmol/L (22-28) H 06/14/17 23:40 ABG O2 Saturation 91.3 % (95-98) L 06/14/17 23:40 ABG Base Excess 4.2 mmol/L (-2.0-3.0) H 06/14/17 23:40 ABG Hemoglobin 12.6 g/dL (11.7-17.4) 06/14/17 23:40 ABG Carboxyhemoglobin 3.0 % (0.5-1.5) H 06/14/17 23:40 POC ABG HHb (Measured) 8.3 % (0.0-5.0) H 06/14/17 23:40 ABG Methemoglobin 1.5 % (0.0-3.0) 06/14/17 23:40 Thang Test Pos 06/14/17 23:40 Hgb O2 Saturation 87.2 % (95.0-98.0) L 06/14/17 23:40 Liter Flow 7.0 06/14/17 23:40 Sodium 138 mmol/L (132-148) 06/18/17 07:39 Potassium 3.8 mmol/L (3.6-5.2) 06/18/17 07:39 Chloride 100 mmol/L (98-107) 06/18/17 07:39 Carbon Dioxide 28 mmol/L (22-30) 06/18/17 07:39 Anion Gap 13 (10-20) 06/18/17 07:39 BUN 16 mg/dL (9-20) 06/18/17 07:39 Creatinine 0.9 mg/dL (0.8-1.5) 06/18/17 07:39 Est GFR ( Amer) > 60 06/18/17 07:39 Est GFR (Non-Af Amer) > 60 06/18/17 07:39 Random Glucose 99 mg/dL (75-110) 06/18/17 07:39 Lactic Acid 1.0 mmol/L (0.7-2.1) 06/15/17 02:14 Calcium 8.6 mg/dl (8.6-10.4) 06/18/17 07:39 Magnesium 2.2 mg/dL (1.6-2.3) 06/17/17 07:24 Total Bilirubin 0.6 mg/dL (0.2-1.3) 06/18/17 07:39 AST 15 U/L (17-59) L 06/18/17 07:39 ALT 25 U/L (21-72) 06/18/17 07:39 Alkaline Phosphatase 70 U/L (38-126) 06/18/17 07:39 NT-Pro-B Natriuret Pep 497 pg/mL (0-900) 06/14/17 11:38 Total Protein 6.4 g/dL (6.3-8.3) 06/18/17 07:39 Albumin 3.5 g/dL (3.5-5.0) 06/18/17 07:39 Globulin 2.9 gm/dL (2.2-3.9) 06/18/17 07:39 Albumin/Globulin Ratio 1.2 (1.0-2.1) 06/18/17 07:39 Procalcitonin 0.32 NG/ML (0.19-0.49) 06/15/17 02:12 Urine Color Yellow (YELLOW) 06/14/17 11:38 Urine Clarity Clear (Clear) 06/14/17 11:38 Urine pH 5.0 (5.0-8.0) 06/14/17 11:38 Ur Specific [place] 1.018 (1.003-1.030) 06/14/17 11:38 Urine Protein 1+ mg/dL (NEGATIVE) H 06/14/17 11:38 Urine Glucose (UA) Normal mg/dL (Normal) 06/14/17 11:38 Urine Ketones Negative mg/dL (NEGATIVE) 06/14/17 11:38 Urine Blood 3+ (NEGATIVE) H 06/14/17 11:38 Urine Nitrate Negative (NEGATIVE) 06/14/17 11:38 Urine Bilirubin Negative (NEGATIVE) 06/14/17 11:38 Urine Urobilinogen 4.0 mg/dL (0.2-1.0) 06/14/17 11:38 Ur Leukocyte Esterase Neg Rito/uL (Negative) 06/14/17 11:38 Urine WBC (Auto) 1 /hpf (0-5) 06/14/17 11:38 Urine RBC (Auto) 15 /hpf (0-3) H 06/14/17 11:38 Ur Squamous Epith Cells < 1 /hpf (0-5) 06/14/17 11:38 Influenza Typ A,B (EIA) Negative for flu a/b (NEGATIVE) 06/14/17 11:38 Ur L.pneumophila Ag Negative (NEGATIVE) 06/15/17 14:09 Mycoplasma pneumon IgM Negative (NEGATIVE) 06/15/17 02:12 Attending/Attestation - Attestation I have personally seen and examined this patient.: Yes I have fully participated in the care of the patient.: Yes I have reviewed all pertinent clinical information, including history, physical exam and plan: Yes Notes (Text): Patient seen, examined and case discussed with medical oncology physician. Patient reports he is feeling better. Breathing better. Patient reports he completed pulmonary function tests yesterday. Resident has spoken with pulmonary in regards to pulmonary function tests, recommends to follow-up with him as outpatient. Patient's repeat chest xray shows improvement. Patient medically stable for discharge. Patient will [facility], will need referral for pulmonary and urology as outpatient for further follow-up. Patient has been counselled repeatedly every day during admission to continue to stop smoking and the associated cancer risk. He refuses tobacco cessation aids. Prescriptions upon discharge: 1) Albuterol Inhaler (1 pump) as needed for shortness of breathe 2) Flovent 1 puff inhaled Q12H (1 pump)-->only if patient cannot afford the Advair 3) Advair 250/50 2 puff inhaled Q 12H-->Advised to keep prescription and when he establishes care with PMD follow-up for patient assistance through the drug company 4) Spirva 18mcg inhaled q daily--->Advised to keep prescription and when he establishes care with PMD follow-up for patient assistance through the drug company 5) Avelox 400mg PO daily for 5 days (5 pills/0 refills) 6) Medrol dose pack 7) Lisinopril 10mg PO daily This is a summary of patient's hospitalization. Please see EMR for further details. Discharge Diagnoses: 1) Dyspnea Community Acquired Pneumonia * monitor on telemetry * Pulmonary (Dr. Salguero) on consult-->help appreciated * Cxray: prominent consolidative opacification seen within the right mid to lower lung zone as well as the left mid to lower lung zone. More dense focal masslike consolidation at the lateral aspect of the right mid lung zone. Tortuous ectatic aorta. Mild cardiomegaly * Ct angio negative for PE * Urine Legionella: negative Strep pneumoniae urine, Mycoplasma IgM: negative * Lactic acid: 1 and procal: .32 * Blood cultures negative * Sputum culture negative * negative flu Upon discharge: * Avelox 400mg PO daily for 5 days (5 pills/0 refills) * Mucinex and cough syrup OTC 2) History of Asthma/COPD * Duoneb 3ml INHRQ4 * Albuterol 3ml INH RQ2H PRN shortness of breathe * Solumedrol 40 mg IVP QDdaily--> * Monitor Pre and post peak flow * Patient varies between nasal canula vs Bipap high 80s low 90s oxygen saturation * f/u physical therapy * start Spiriva 18mcg inhaled daily Upon discharge: * Albuterol Inhaler (1 pump) as needed for shortness of breathe * Flovent 1 puff inhaled Q12H (1 pump)-->only if patient cannot afford the Advair * Advair 250/50 2 puff inhaled Q 12H-->Advised to keep prescription and when he establishes care with PMD follow-up for patient assistance through the drug company * Spirva 18mcg inhaled q daily--->Advised to keep prescription and when he establishes care with PMD follow-up for patient assistance through the drug company * Medrol dose pack 3) Tobacco cessation * Patient was counselled but does not want any aids 4) Uncontrolled Hypertension * d/c Norvasc secondary to patient request for concerns over side effect of swelling Upon discharge: * Lisinopril 10mg PO daily and dietary modifications 5) Hematuria * Noted in UA * Urine culture: no growth * Renal/bladder US: unremarkable * Will need to f/u urology for further workup as outpatient 6) Hypokalemia * monitor and replete 7) Prophylaxis * Protonix 40mg IV q daily * SCDs * Lovenox 40mg subqdaily * Florastor 250mg PO BID
== END 2017-06-18 17:42 | disposition home or self-care (01) | DRG 89 ==
LOC: C.ER 21:18 → C.9E 06-15 00:48 → C.5S 06-15 02:02
PROVIDERS: ADMIT Hospitalist; ATTEND Hospitalist
DX: J18.9 Pneumonia, unspecified organism (principal); E87.6 Hypokalemia; R09.02 Hypoxemia; J44.0 Chronic obstructive pulmonary disease with (acute) lower respiratory infection; I51.7 Cardiomegaly; I11.9 Hypertensive heart disease without heart failure; F17.200 Nicotine dependence, unspecified, uncomplicated; K59.00 Constipation, unspecified; R79.1 Abnormal coagulation profile; Z79.899 Other long term (current) drug therapy; J45.901 Unspecified asthma with (acute) exacerbation; I77.819 Aortic ectasia, unspecified site; F12.90 Cannabis use, unspecified, uncomplicated; R31.9 Hematuria, unspecified

== ENCOUNTER 2018-01-24 06:11 | Emergency (ER) | payer BC, OTHER ==
--- NOTE | 2018-01-24 06:16 | C.PDOC ---
History Of Present Illness 57 year old male presents to the ED c/o SOB. Patient reports his inhaler ran out and he had a panic attack. Patient is speaking in complete sentences. Patient denies fever, chills, CP, palpitations, rash, headache, weakness, numbness. Time Seen by Provider: 01/24/18 06:16 Chief Complaint (Nursing): Shortness Of Breath History Per: Patient History/Exam Limitations: no limitations Onset/Duration Of Symptoms: Hrs Current Symptoms Are (Timing): Still Present Initiating Event: Upper Respiratory Illness Quality: Tightness Current Respiratory Medications: See Home Med List Associated Symptoms: Anxiety Recent travel outside of the [place] States: No Additional History Per: Patient Past Medical History Reviewed: Historical Data, Nursing Documentation, Vital Signs - Medical History PMH: Asthma, Bronchitis, HTN Surgical History: Back Surgery Family History: States: Unknown Family Hx - Social History Hx Tobacco Use: Yes (smoker) Hx Alcohol Use: No Hx Substance Use: Yes (marijuana) - Immunization History Hx Tetanus Toxoid Vaccination: No Hx Influenza Vaccination: No Hx Pneumococcal Vaccination: No Review Of Systems Constitutional: Negative for: Fever, Chills Cardiovascular: Negative for: Chest Pain, Palpitations Respiratory: Positive for: Shortness of Breath. Negative for: Cough, Wheezing Gastrointestinal: Negative for: Nausea, Vomiting, Abdominal Pain Skin: Negative for: Rash Neurological: Negative for: Weakness, Numbness, Headache, Dizziness Physical Exam - Physical Exam Appears: Non-toxic, No Acute Distress Skin: Warm, Dry Head: Normacephalic Eye(s): bilateral: Normal Inspection Oral Mucosa: Moist Neck: Supple Chest: Symmetrical Cardiovascular: Rhythm Regular Respiratory: No Rales, No Rhonchi, No Wheezing Gastrointestinal/Abdominal: Soft, No Tenderness, No Guarding, No Rebound Extremity: Bilateral: Atraumatic, Normal Color And Temperature, Normal ROM Neurological/Psych: Oriented x3, Normal Speech, Normal Cognition Gait: Steady ED Course And Treatment O2 Sat by Pulse Oximetry: 98 (On RA) Pulse Ox Interpretation: Normal Progress Note: Plan: - Duoneb. Patient states he is feeling much better after the duoneb treatment. Patient states he does not want ant blood work or X-Ray as he feels betters and it was just a panic attack. Reevaluation Time: 06:44 Reassessment Condition: Improved Disposition Counseled Patient/Family Regarding: Studies Performed, Diagnosis, Need For Followup - Disposition Referrals: [facility] [Outside] [facility] [Outside] Disposition: HOME/ ROUTINE Disposition Time: 06:16 Condition: FAIR Additional Instructions: Please return if symptoms recur Prescriptions: Albuterol HFA [Ventolin HFA 90 mcg/actuation (8 g)] 2 puff IH [id number] #1 puff Tiotropium [place] Inhaler [Spiriva Inhalation Handihaler Device] 1 inhaler INH DAILY #90 inhaler Instructions: Anxiety, Adult (DC) Forms: [employer] (Tajik) - Clinical Impression Clinical Impression: Anxiety - Scribe Statement The provider has reviewed the documentation as recorded by the Scribe Khang Collins All medical record entries made by the Scribe were at my direction and personally dictated by me. I have reviewed the chart and agree that the record accurately reflects my personal performance of the history, physical exam, medical decision making, and the department course for this patient. I have also personally directed, reviewed, and agree with the discharge instructions and disposition.
[2018-01-24] MEDS ORDERED: Albuterol-Ipratrop 3 mg / 0.5 (3 ml) UD ONE ×2 (06:17→06:49)
[2018-01-24 06:18] VITALS: BP 190/120; PULSE 66; RESP 20; TEMP 97.8; O2SAT 98
[2018-01-24] MEDS: Albuterol-Ipratrop 3 mg / 0.5 (3 ml) UD IH SCH ×3 (06:30→06:55)
== END 2018-01-24 07:47 | disposition home or self-care (01) ==
LOC: C.ER 06:11
DX: F41.9 Anxiety disorder, unspecified (principal)